=== PATIENT | female | born 1940 | race Caucasian/White ===

== ENCOUNTER 2016-09-03 12:22 | Inpatient (IN) | payer MEDICARE, BC ==
[2016-09-03] MEDS ORDERED: ALBUTEROL NEBULIZED 2.5 MG/3 ML INHALATION STA (12:35)
[2016-09-03] MEDS ORDERED: methylPREDNISolone SOD SUCCI 125 MG/2 ML VIAL IV STA (12:35)
[2016-09-03] MEDS ORDERED: IPRATROPIUM 0.5 MG/2.5 ML NEBU INHALATION STA (12:35)
[2016-09-03] MEDS ORDERED: KETOROLAC 60 MG/2 ML VIAL IVP STA (12:36)
--- NOTE | 2016-09-03 12:36 | ED ---
General Adult HPI - General Chief complaint: Weakness Stated complaint: Weakness Time Seen by Provider: 09/03/16 12:36 Source: EMS, RN notes reviewed Mode of arrival: EMS Limitations: physical limitation - History of Present Illness Initial comments: This is a 76-year-old female who presents to the emergency department with past medical history significant for bypass surgery and cardiac stents she also has a history of COPD. Patient comes in today because she says lately is becoming more more short of breath and she is finding it difficult to even get around at all. Patient states because of that she's also becoming a lot weaker. Patient states she was recently diagnosed with a bladder infection as well. Patient denies any recent fever chills or cough. Patient denies any headache patient denies numbness weakness. Patient denies any palpitations or chest pain. Patient denies abdominal pain patient denies nausea vomiting diarrhea. Patient denies any recent injury or trauma. - Related Data Home Medications Medication Instructions Recorded Confirmed Pantoprazole Sodium [Protonix] 40 mg PO DAILY 11/17/14 09/03/16 Sertraline [Zoloft] 100 mg PO DAILY 11/17/14 09/03/16 Verapamil HCl [Verapamil ER] 240 mg PO HS 11/17/14 09/03/16 traZODone HCL [Desyrel] 50 mg PO HS PRN 11/17/14 09/03/16 Levothyroxine Sodium [Synthroid] 50 mcg PO DAILY 08/12/15 09/03/16 Lovastatin [Mevacor] 40 mg PO HS 06/30/16 09/03/16 Aspirin 325 mg PO DAILY 09/03/16 09/03/16 Budesonide-Formot 160-4.5 Mcg 2 puff INHALATION RT-BID 09/03/16 09/03/16 [Symbicort 160-4.5 Mcg Inhaler] Ferrous Sulfate [Feosol] 325 mg PO DAILY 09/03/16 09/03/16 Ipratropium-Albuterol Nebulize 3 ml INHALATION RT-QID 09/03/16 09/03/16 [Duoneb 0.5 mg-3 mg/3 ml Soln] Allergies Allergy/AdvReac Type Severity Reaction Status Date / Time No Known Allergies Allergy Verified 09/03/16 12:30 Review of Systems ROS Statement: Those systems with pertinent positive or pertinent negative responses have been documented in the HPI. ROS Other: All systems not noted in ROS Statement are negative. Past Medical History Past Medical History: Cancer, COPD, GERD/Reflux, Hyperlipidemia, Hypertension, Myocardial Infarction ([place]), Pneumonia, Thyroid Disorder Additional Past Medical History / Comment(s): 08-12-15 ADMITTED WITH SOB. CLINICAL IMPRESSION: ACUTE EXACERBATION OF COPD,TRACHEOBRONCHITIS. colon cancer 2010, chemo/radiation, [place] 2004- stents, HOME 02 3 LITERS [place] Last Myocardial Infarction Date:: 2004 History of Any Multi-Drug Resistant Organisms: None Reported Past Surgical History: Appendectomy, Bowel Resection, Coronary Bypass/CABG, Heart Catheterization With Stent, Hysterectomy, Orthopedic Surgery Additional Past Surgical History / Comment(s): 18 inches of colon removed, right shoulder surgery Additional Past Anesthesia/Blood Transfusion Reaction / Comment(s): CLAUSTERPHOBIA Date of Last Stent Placement:: 2004 Past Psychological History: Anxiety, Depression Additional Psychological History / Comment(s): zoloft and xanax. PT DEINIES ANY THOUGHTS OF HARMING SELF NO SIUCIDAL THOUGHTS. PT FEELS SOME DEPRESSION D/T MEDICAL RPOBLEMS(END STAGE COPD) STILL FINDS INTEREST IN GRANDCHILDREN, AT TIMES FEELS BAD BECAUSE SHE CAN'T DO WHAT SHE USED TO AND SPOUSE HELPS HER. WHEN ASKED IF FEELS HOPLESS PT STATED YES FOR FUTURE BECAUSE OF HER MEDICAL PROLEMS SHE SHE DOES'NT KNOW HOW MANY MORE YEARS SHE HAS TO SEE GRANDCHILDREN GROW UP. Smoking Status: Former smoker Past Alcohol Use History: None Reported Additional Past Alcohol Use History / Comment(s): QUIT SMOKING 1989 Past Drug Use History: None Reported - Past Family History Mother Family Medical History: Cancer Additional Family Medical History / Comment(s): breast cancer Father Family Medical History: Cancer Additional Family Medical History / Comment(s): lung cancer Sister(s) Family Medical History: Cancer Additional Family Medical History / Comment(s): pancreatic cancer General Exam - General Exam Comments Initial Comments: GENERAL: Patient is well-developed and well-nourished. Patient is nontoxic and well- hydrated and is in mild distress. ENT: Neck is soft and supple. No significant lymphadenopathy is noted. Oropharynx is clear. Moist mucous membranes. Neck has full range of motion without eliciting any pain. EYES: The sclera were anicteric and conjunctiva were pink and moist. Extraocular movements were intact and pupils were equal round and reactive to light. Eyelids were unremarkable. PULMONARY: Patient has diminished breath sounds diffusely and some expiratory wheezing. CARDIOVASCULAR: There is a regular rate and rhythm without any murmurs gallops or rubs. ABDOMEN: Soft and nontender with normal bowel sounds. No palpable organomegaly was noted. There is no palpable pulsatile mass. SKIN: Skin is clear with no lesions or rashes and otherwise unremarkable. NEUROLOGIC: Patient is alert and oriented x3. Cranial nerves II through XII are grossly intact. Motor and sensory are also intact. Normal speech, volume and content. Symmetrical smile. MUSCULOSKELETAL: Normal extremities with adequate strength and full range of motion. No lower extremity swelling or edema. No calf tenderness. LYMPHATICS: No significant lymphadenopathy is noted PSYCHIATRIC: Normal psychiatric evaluation. Normal interpersonal interactions appears functionally intact in deals appropriately with others. No signs of depression. No signs of anxiety. Limitations: physical limitation Course Vital Signs 09/03/16 09/03/16 09/03/16 12:27 13:00 13:15 Temperature 97.9 F Pulse Rate 80 76 78 Respiratory 20 Rate Blood Pressure 152/81 O2 Sat by Pulse 100 Oximetry 09/03/16 09/03/16 09/03/16 13:17 13:46 13:55 Temperature Pulse Rate 75 82 86 Respiratory 20 Rate Blood Pressure 162/67 O2 Sat by Pulse 100 Oximetry 09/03/16 15:29 Temperature Pulse Rate 88 Respiratory 18 Rate Blood Pressure 140/65 O2 Sat by Pulse 98 Oximetry Medical Decision Making - Medical Decision Making EKG shows normal sinus rhythm at a rate of 76 bpm MD interval is on a 56 QRS 78 QT interval 414 QTC is 465. Patient's EKG shows some T-wave inversions in leads V2 and V3. These were seen in previous EKGs. Urine showed a bad urinary tract infection started the patient on Levaquin and continue that on the floor. Chest x-ray showed COPD but no acute findings. Begin the room at the patient received her treatment and she was doing better but not back to her baseline according to her she could have symmetrical wheezing so. I spoke with Dr. Choi and he agreed to admit the patient admitted the patient I wrote admitting orders continue breathing treatments and steroids in the floor. - Lab Data Result diagrams: 09/03/16 13:46 09/03/16 12:50 Lab Results 09/03/16 09/03/16 09/03/16 Range/Units 12:50 12:50 12:50 WBC (3.8-10.6) k/uL RBC (3.80-5.40) m/uL Hgb (11.4-16.0) gm/dL Hct (34.0-46.0) % MCV (80.0-100.0) fL MCH (25.0-35.0) pg MCHC (31.0-37.0) g/dL RDW (11.5-15.5) % Plt Count (150-450) k/uL Neutrophils % % Lymphocytes % % Monocytes % % Eosinophils % % Basophils % % Neutrophils # (1.3-7.7) k/uL Lymphocytes # (1.0-4.8) k/uL Monocytes # (0-1.0) k/uL Eosinophils # (0-0.7) k/uL Basophils # (0-0.2) k/uL Hypochromasia PT (9.0-12.0) sec INR (<1.1) APTT (22.0-30.0) sec Sodium 142 (137-145) mmol/L Potassium 4.7 (3.5-5.1) mmol/L Chloride 102 (98-107) mmol/L Carbon Dioxide 28 (22-30) mmol/L Anion Gap 12 mmol/L BUN 14 (7-17) mg/dL Creatinine 0.79 (0.52-1.04) mg/dL Est GFR (MDRD) Af Amer >60 (>60 ml/min/1.73 sqM) Est GFR (MDRD) Non-Af >60 (>60 ml/min/1.73 sqM) Glucose 97 (74-99) mg/dL Calcium 9.1 (8.4-10.2) mg/dL Magnesium 2.0 (1.6-2.3) mg/dL Total Bilirubin 0.5 (0.2-1.3) mg/dL AST 34 (14-36) U/L ALT 34 (9-52) U/L Alkaline Phosphatase 101 (38-126) U/L Total Creatine Kinase 320 H (30-135) U/L CK-MB (CK-2) 0.6 (0.0-2.4) ng/mL CK-MB (CK-2) Rel Index 0.2 Troponin I <0.012 (0.000-0.034) ng/mL NT-Pro-B Natriuret Pep 288 pg/mL Total Protein 6.9 (6.3-8.2) g/dL Albumin 4.1 (3.5-5.0) g/dL Urine Color Urine Appearance (Clear) Urine pH (5.0-8.0) Ur Specific Clifford (1.001-1.035) Urine Protein (Negative) Urine Glucose (UA) (Negative) Urine Ketones (Negative) Urine Blood (Negative) Urine Nitrate (Negative) Urine Bilirubin (Negative) Urine Urobilinogen (<2.0) mg/dL Ur Leukocyte Esterase (Negative) Urine RBC (0-5) /hpf Urine WBC (0-5) /hpf Urine WBC Clumps (None) /hpf Ur Squamous Epith Cells (0-4) /hpf Urine Mucus (None) /hpf Urine Yeast (Budding) (None) /hpf 09/03/16 09/03/16 09/03/16 Range/Units 13:46 13:49 14:45 WBC 11.2 H (3.8-10.6) k/uL RBC 3.74 L (3.80-5.40) m/uL Hgb 10.7 L (11.4-16.0) gm/dL Hct 35.6 (34.0-46.0) % MCV 95.2 (80.0-100.0) fL MCH 28.5 (25.0-35.0) pg MCHC 29.9 L (31.0-37.0) g/dL RDW 14.2 (11.5-15.5) % Plt Count 275 (150-450) k/uL Neutrophils % 62 % Lymphocytes % 27 % Monocytes % 5 % Eosinophils % 2 % Basophils % 1 % Neutrophils # 6.9 (1.3-7.7) k/uL Lymphocytes # 3.0 (1.0-4.8) k/uL Monocytes # 0.5 (0-1.0) k/uL Eosinophils # 0.3 (0-0.7) k/uL Basophils # 0.1 (0-0.2) k/uL Hypochromasia Marked PT 10.2 (9.0-12.0) sec INR 1.0 (<1.1) APTT 22.1 (22.0-30.0) sec Sodium (137-145) mmol/L Potassium (3.5-5.1) mmol/L Chloride (98-107) mmol/L Carbon Dioxide (22-30) mmol/L Anion Gap mmol/L BUN (7-17) mg/dL Creatinine (0.52-1.04) mg/dL Est GFR (MDRD) Af Amer (>60 ml/min/1.73 sqM) Est GFR (MDRD) Non-Af (>60 ml/min/1.73 sqM) Glucose (74-99) mg/dL Calcium (8.4-10.2) mg/dL Magnesium (1.6-2.3) mg/dL Total Bilirubin (0.2-1.3) mg/dL AST (14-36) U/L ALT (9-52) U/L Alkaline Phosphatase (38-126) U/L Total Creatine Kinase (30-135) U/L CK-MB (CK-2) (0.0-2.4) ng/mL CK-MB (CK-2) Rel Index Troponin I (0.000-0.034) ng/mL NT-Pro-B Natriuret Pep pg/mL Total Protein (6.3-8.2) g/dL Albumin (3.5-5.0) g/dL Urine Color Yellow Urine Appearance Cloudy H (Clear) Urine pH 5.5 (5.0-8.0) Ur Specific Clifford 1.016 (1.001-1.035) Urine Protein Trace H (Negative) Urine Glucose (UA) Negative (Negative) Urine Ketones Trace H (Negative) Urine Blood Small H (Negative) Urine Nitrate Negative (Negative) Urine Bilirubin Negative (Negative) Urine Urobilinogen <2.0 (<2.0) mg/dL Ur Leukocyte Esterase Large H (Negative) Urine RBC 8 H (0-5) /hpf Urine WBC >182 H (0-5) /hpf Urine WBC Clumps Few H (None) /hpf Ur Squamous Epith Cells 1 (0-4) /hpf Urine Mucus Occasional H (None) /hpf Urine Yeast (Budding) Few H (None) /hpf Critical Care Time Critical Care Time: Yes Total Critical Care Time: 35 Disposition Clinical Impression: Urinary tract infection, Acute exacerbation of chronic obstructive pulmonary disease (COPD) Disposition: ADMITTED IP TO THIS HOSP Time of Disposition: 15:41
[2016-09-03 13:13] LABS: ALT 34 U/L (9-52); AST 34 U/L (14-36); Alkaline Phosphatase 101 U/L (38-126); Anion Gap 12 mmol/L; Blood Urea Nitrogen 14 mg/dL (7-17); Calcium 9.1 mg/dL (8.4-10.2); Carbon Dioxide 28 mmol/L (22-30); Chloride 102 mmol/L (98-107); Glucose 97 mg/dL (74-99); Non-African American GFR(MDRD) >60 (>60 ml/min/1.73 sqM); Potassium 4.7 mmol/L (3.5-5.1); Sodium 142 mmol/L (137-145); Total Bilirubin 0.5 mg/dL (0.2-1.3); Total Protein 6.9 g/dL (6.3-8.2)
[2016-09-03 13:45] LABS: Creatine Kinase 320 U/L (30-135)
[2016-09-03 13:57] LABS: Creatine Kinase MB 0.6 ng/mL (0.0-2.4); Troponin I <0.012 ng/mL (0.000-0.034)
[2016-09-03 14:15] LABS: Basophils # (A) 0.1 k/uL (0-0.2); Basophils % (A) 1 %; CH 28.8; CHCM 30.3; Eosinophils # (A) 0.3 k/uL (0-0.7); Eosinophils % (A) 2 %; HCT 35.6 % (34.0-46.0); HDW 2.77; HGB 10.7 gm/dL (11.4-16.0); Hypochromasia Marked; Luc # (Auto) 0.42; Luc % (Auto) 4; Lymphocytes % (A) 27 %; MCH 28.5 pg (25.0-35.0); MCHC 29.9 g/dL (31.0-37.0); MCV 95.2 fL (80.0-100.0); Mean Platelet Volume 7.5; Monocytes # (A) 0.5 k/uL (0-1.0); Monocytes % (A) 5 %; Neutrophils # (A) 6.9 k/uL (1.3-7.7); Neutrophils % (A) 62 %; RBC 3.74 m/uL (3.80-5.40); RDW 14.2 % (11.5-15.5); WBC 11.2 k/uL (3.8-10.6); WBC (Perox) 11.54
[2016-09-03 14:30] LABS: Partial Thromboplastin Time 22.1 sec (22.0-30.0); Prothrombin Time 10.2 sec (9.0-12.0)
[2016-09-03 15:01] LABS: Appearance,Urine Cloudy (Clear); Bilirubin,Urine Negative (Negative); Glucose,Urine (UA) Negative (Negative); Ketones,Urine Trace (Negative); Leukocyte Esterase,Urine Large (Negative); Mucus,Urine Occasional /hpf; Nitrite,Urine Negative (Negative); PH, Urine 5.5 (5.0-8.0); Particle Count 75970; Protein,Urine Trace (Negative); RBC,Urine 8 /hpf (0-5); Specific Gravity,Urine 1.016 (1.001-1.035); Squamous Epithelial Cell,Urine 1 /hpf (0-4); UA Billing (MACRO vs. MICRO) MICRO; Urobilinogen,Urine <2.0 mg/dL (<2.0); WBC,Urine >182 /hpf (0-5)
--- NOTE | 2016-09-03 15:15 | XR ---
EXAMINATION TYPE: XR chest 2V DATE OF EXAM: 09/03/2016 2:37 PM COMPARISON: 06/30/2016 INDICATION: Difficulty breathing TECHNIQUE: Single frontal view of the chest is obtained. FINDINGS: The heart size is normal. The pulmonary vasculature is normal. The lungs are clear. There is a port present on the left with tip in the superior vena cava region. Sternotomy wires are p resent. Osseous structures as visualized appear intact. IMPRESSION: 1. No acute pulmonary process.
[2016-09-03] MEDS ORDERED: LEVOFLOXACIN 750MG-D5W PMX 750 MG in DEXTROSE/WATER 1 150ML.BAG IVPB STA (15:28)
[2016-09-03] MEDS: IPRATROPIUM-ALBUTEROL 3 ML NEB INHALATION PRN (19:26)
[2016-09-03] MEDS: BUDESONIDE 0.5 MG/2 ML NEBU INHALATION SCH (19:26)
[2016-09-03] MEDS: VERAPAMIL SR 240 MG TABLET.ER PO SCH (20:01)
[2016-09-03] MEDS: ATORVASTATIN 10 MG TAB PO SCH (20:01)
[2016-09-03] MEDS: methylPREDNISolone SOD SUCCI 125 MG/2 ML VIAL IV SCH ×2 (20:01→23:26)
[2016-09-03] MEDS: traZODone HCL 50 MG TAB PO PRN (21:45)
[2016-09-04] MEDS: LEVOTHYROXINE 50 MCG TAB PO SCH (06:29)
[2016-09-04] MEDS: methylPREDNISolone SOD SUCCI 125 MG/2 ML VIAL IV SCH ×3 (06:29→18:20)
[2016-09-04 07:06] LABS: Glucose,Whole Blood 160 mg/dL (75-99)
[2016-09-04] MEDS: IPRATROPIUM-ALBUTEROL 3 ML NEB INHALATION PRN (07:43)
[2016-09-04] MEDS: BUDESONIDE 0.5 MG/2 ML NEBU INHALATION SCH ×2 (07:43→21:25)
[2016-09-04] MEDS ORDERED: ACETAMINOPHEN TAB 325 MG TAB PO PRN (07:49)
[2016-09-04] MEDS: PANTOPRAZOLE 40 MG TABLET PO SCH (08:29)
[2016-09-04] MEDS: SERTRALINE 100 MG TAB PO SCH (09:50)
[2016-09-04] MEDS: ASPIRIN 325 MG TAB PO SCH (09:50)
[2016-09-04] MEDS: MORPHINE SULFATE 2 MG/ML SYRINGE IVP PRN ×2 (09:50→21:10)
--- NOTE | 2016-09-04 11:56 | P.HPIM ---
History of Present Illness H&P Date: 09/04/16 Chief Complaint: Shortness of breath and burning with urination This is a 76-year-old female, a patient of Dr. Roberts. She has a known past medical history of recurrent urinary tract infections, COPD, hypertension, hypothyroidism, colon cancer and coronary artery disease with previous cardiac stenting and coronary bypass grafting. Patient presents to the emergency room with complaints of worsening shortness of breath over the last few days. She is having difficulty with ambulating due to her shortness of breath. She also noted to have some generalized weakness and weakness in the legs. She did have a slight fall at home where she felt that her legs, gave out and she slid to the floor. She denies any injury or loss of consciousness. She also has been having burning with urination and was found to have a urinary tract infection on admission. Patient was started on Levaquin for the UTI and IV steroids for her COPD exacerbation. Patient is on 3 L of oxygen at home. And is currently on 3 L satting at 94%. Patient denies any fever, chills or sweats. She denies cough. Denies any nausea or vomiting. Denies any diarrhea. She had a formed stool yesterday. Review of Systems Please refer to HPI otherwise unremarkable Past Medical History Past Medical History: Cancer, COPD, GERD/Reflux, Hyperlipidemia, Hypertension, Myocardial Infarction ([place]), Pneumonia, Thyroid Disorder Additional Past Medical History / Comment(s): COPD,TRACHEOBRONCHITIS.HOME 02 3 LITERS [place] colon cancer 2010, chemo/radiation, [place] 2004-2 stents, UTI'S, chronic abdominal pain Last Myocardial Infarction Date:: 2004 History of Any Multi-Drug Resistant Organisms: None Reported Past Surgical History: Appendectomy, Bowel Resection, Coronary Bypass/CABG, Heart Catheterization With Stent, Hysterectomy, Orthopedic Surgery Additional Past Surgical History / Comment(s): 18 inches of colon removed, right shoulder surgery Additional Past Anesthesia/Blood Transfusion Reaction / Comment(s): CLAUSTERPHOBIA Date of Last Stent Placement:: 2004 Past Psychological History: Anxiety, Depression Additional Psychological History / Comment(s): zoloft and xanax. PT DEINIES ANY THOUGHTS OF HARMING SELF NO SIUCIDAL THOUGHTS. PT FEELS SOME DEPRESSION D/T MEDICAL RPOBLEMS(END STAGE COPD) STILL FINDS INTEREST IN GRANDCHILDREN, AT TIMES FEELS BAD BECAUSE SHE CAN'T DO WHAT SHE USED TO AND SPOUSE HELPS HER. WHEN ASKED IF FEELS HOPLESS PT STATED YES FOR FUTURE BECAUSE OF HER MEDICAL PROLEMS SHE SHE DOES'NT KNOW HOW MANY MORE YEARS SHE HAS TO SEE GRANDCHILDREN GROW UP. Smoking Status: Former smoker Past Alcohol Use History: None Reported Additional Past Alcohol Use History / Comment(s): STARTED SMOKING AT AGE 23, SMOKED 2 PPD,QUIT SMOKING 1989 Past Drug Use History: None Reported - Past Family History Mother Family Medical History: Cancer Additional Family Medical History / Comment(s): breast cancer Father Family Medical History: Cancer Additional Family Medical History / Comment(s): lung cancer Sister(s) Family Medical History: Cancer Additional Family Medical History / Comment(s): pancreatic cancer Medications and Allergies Home Medications Medication Instructions Recorded Confirmed Type Pantoprazole Sodium [Protonix] 40 mg PO DAILY 11/17/14 09/03/16 History Sertraline [Zoloft] 100 mg PO DAILY 11/17/14 09/03/16 History Verapamil HCl [Verapamil ER] 240 mg PO HS 11/17/14 09/03/16 History traZODone HCL [Desyrel] 50 mg PO HS PRN 11/17/14 09/03/16 History Levothyroxine Sodium [Synthroid] 50 mcg PO DAILY 08/12/15 09/03/16 History Lovastatin [Mevacor] 40 mg PO HS 06/30/16 09/03/16 History Aspirin 325 mg PO DAILY 09/03/16 09/03/16 History Budesonide-Formot 160-4.5 Mcg 2 puff INHALATION RT-BID 09/03/16 09/03/16 History [Symbicort 160-4.5 Mcg Inhaler] Ferrous Sulfate [Feosol] 325 mg PO DAILY 09/03/16 09/03/16 History Ipratropium-Albuterol Nebulize 3 ml INHALATION RT-QID 09/03/16 09/03/16 History [Duoneb 0.5 mg-3 mg/3 ml Soln] Allergies Allergy/AdvReac Type Severity Reaction Status Date / Time No Known Allergies Allergy Verified 09/03/16 12:30 Physical Exam Vitals: Vital Signs Temp Pulse Pulse Resp BP BP Pulse Ox 09/04/16 08:00 84 09/04/16 07:44 84 09/04/16 07:00 97.7 F 80 18 132/70 94 L 09/03/16 23:00 98.2 F 83 20 155/76 97 09/03/16 19:40 82 09/03/16 19:28 82 98 09/03/16 17:10 96.3 F L 86 20 144/70 98 09/03/16 16:15 97.5 F L 87 18 137/66 98 Intake and Output 09/03/16 09/04/16 09/04/16 22:59 06:59 14:59 Intake Total 250 450 Balance 250 450 Intake: Oral 250 450 Other: Voiding Method Bedside Commode Bedpan # Voids 2 5 1 Head normocephalic Neck supple Lungs tight bilaterally, few faint wheezes noted bilaterally no crackles Heart regular rate and rhythm S1-S2, no rub or gallop Abdomen is soft nondistended positive bowel sounds no hepatosplenomegaly. Patient does have diffuse tenderness Extremities no edema Neuro alert and orientated to 3 Results CBC & Chem 7: 09/03/16 13:46 09/03/16 12:50 Labs: Abnormal Lab Results - Last 24 Hours (Table) 09/04/16 Range/Units 07:04 POC Glucose (mg/dL) 160 H (75-99) mg/dL Thrombosis Risk Factor Assmnt - Choose All That Apply Any of the Below Risk Factors Present?: Yes Each Factor Represents 1 point: Abnormal pulmonary function (COPD), Obesity ( BMI >25), Serious lung disease incl. pneumonia (< 1month) Other Risk Factors: Yes Each Risk Factor Represents 2 Points: Malignancy Each Risk Factor Represents 3 Points: Age 75 years or older Other congenital or acquired thrombophilia - If yes, enter type in comment: No Thrombosis Risk Factor Assessment Total Risk Factor Score: 8 Thrombosis Risk Factor Assessment Level: High Risk Assessment and Plan Plan: 1. Acute COPD exacerbation: Patient started on IV Solu-Medrol. Also add DuoNeb updrafts 4 times a day and as needed. 2. UTI: Urine culture pending. Continue with the Levaquin 3. History of COPD and chronic respiratory failure home O2 dependent 4. History of coronary artery disease with previous cardiac stents and CABG 5. History of myocardial infarction 6. History of colon cancer about 3 years ago status post chemotherapy and bowel resection 7. Essential hypertension: Blood pressures are stable continue with verapamil 8. Hypothyroidism continue Synthroid 9. Generalized weakness and medical debility consult physical therapy GI prophylaxis Protonix and DVT prophylaxis subcu heparin Time with Patient: Greater than 30 (Greater than 50% of the total time spent in counseling and coordination of care.I performed an examination of the patient and discussed their management with the physician Exchange Clerk. I have reviewed the Physician Exchange Clerk's notes and agree with the documented findings and plan of care)
[2016-09-04 11:57] LABS: Glucose,Whole Blood 190 mg/dL (75-99)
[2016-09-04] MEDS: IPRATROPIUM-ALBUTEROL 3 ML NEB INHALATION SCH ×3 (12:03→21:25)
[2016-09-04 12:40] VITALS: BMI 29.2
[2016-09-04] MEDS: INSULIN LISPRO (humaLOG) 300 UNIT/3 ML VIAL SQ SCH ×3 (13:03→20:50)
[2016-09-04] MEDS: FERROUS SULFATE 325 MG TAB PO SCH (13:03)
[2016-09-04] MEDS ORDERED: LEVOFLOXACIN 750MG-D5W PMX 750 MG in DEXTROSE/WATER 1 150ML.BAG IVPB SCH (16:00)
[2016-09-04 16:48] LABS: Glucose,Whole Blood 175 mg/dL (75-99)
[2016-09-04] MEDS: ALPRAZolam 0.25 MG TAB PO PRN (20:41)
[2016-09-04] MEDS: ATORVASTATIN 10 MG TAB PO SCH (20:42)
[2016-09-04] MEDS: HEPARIN SODIUM,PORCINE 5,000 UNIT/ML 1 ML VIAL SQ SCH (20:42)
[2016-09-04] MEDS: VERAPAMIL SR 240 MG TABLET.ER PO SCH (20:42)
[2016-09-04 20:48] LABS: Glucose,Whole Blood 193 mg/dL (75-99)
[2016-09-04] MEDS: traZODone HCL 50 MG TAB PO PRN (21:10)
[2016-09-05] MEDS: methylPREDNISolone SOD SUCCI 125 MG/2 ML VIAL IV SCH ×3 (00:48→12:30)
[2016-09-05] MEDS: LEVOTHYROXINE 50 MCG TAB PO SCH (06:51)
[2016-09-05] MEDS: IPRATROPIUM-ALBUTEROL 3 ML NEB INHALATION SCH ×4 (07:15→19:54)
[2016-09-05] MEDS: BUDESONIDE 0.5 MG/2 ML NEBU INHALATION SCH ×2 (07:15→19:54)
[2016-09-05 07:24] LABS: Glucose,Whole Blood 180 mg/dL (75-99)
[2016-09-05 08:51] LABS: Basophils % (A) 0 %; CH 28.3; CHCM 30.9; Eosinophils % (A) 0 %; HCT 35.5 % (34.0-46.0); Hypochromasia Moderate; Luc # (Auto) 0.09; Luc % (Auto) 1; Lymphocytes # (A) 0.9 k/uL (1.0-4.8); Lymphocytes % (A) 6 %; MCH 28.4 pg (25.0-35.0); MCHC 30.9 g/dL (31.0-37.0); MCV 91.8 fL (80.0-100.0); Mean Platelet Volume 7.4; Monocytes # (A) 0.4 k/uL (0-1.0); Monocytes % (A) 3 %; Neutrophils # (A) 13.1 k/uL (1.3-7.7); Neutrophils % (A) 90 %; RBC 3.87 m/uL (3.80-5.40); RDW 14.3 % (11.5-15.5); WBC 14.5 k/uL (3.8-10.6); WBC (Perox) 14.41
[2016-09-05 08:55] LABS: ALT 35 U/L (9-52); AST 104 U/L (14-36); Alkaline Phosphatase 89 U/L (38-126); Anion Gap 14 mmol/L; Blood Urea Nitrogen 23 mg/dL (7-17); Calcium 9.1 mg/dL (8.4-10.2); Carbon Dioxide 24 mmol/L (22-30); Chloride 104 mmol/L (98-107); Glucose 194 mg/dL (74-99); Non-African American GFR(MDRD) >60 (>60 ml/min/1.73 sqM); Potassium 4.6 mmol/L (3.5-5.1); Sodium 142 mmol/L (137-145); Total Bilirubin 0.4 mg/dL (0.2-1.3); Total Protein 6.6 g/dL (6.3-8.2)
[2016-09-05] MEDS: ASPIRIN 325 MG TAB PO SCH (09:24)
[2016-09-05] MEDS: SERTRALINE 100 MG TAB PO SCH (09:24)
[2016-09-05] MEDS: PANTOPRAZOLE 40 MG TABLET PO SCH (09:24)
[2016-09-05] MEDS: HEPARIN SODIUM,PORCINE 5,000 UNIT/ML 1 ML VIAL SQ SCH ×2 (09:24→21:47)
[2016-09-05] MEDS: INSULIN LISPRO (humaLOG) 300 UNIT/3 ML VIAL SQ SCH ×4 (09:24→21:49)
[2016-09-05 11:55] LABS: Glucose,Whole Blood 164 mg/dL (75-99)
[2016-09-05] MEDS: FERROUS SULFATE 325 MG TAB PO SCH (12:30)
--- NOTE | 2016-09-05 14:05 | P.PN ---
Subjective Patient is doing better today. She is complaining of constipation. Objective - Vital Signs Vital signs: Vital Signs Temp 97.4 F L 09/05/16 07:00 Pulse 88 09/05/16 11:23 Resp 16 09/05/16 07:00 BP 149/90 09/05/16 07:00 Pulse Ox 92 L 09/05/16 07:00 Intake & Output 09/04/16 09/05/16 09/05/16 18:59 06:59 18:59 Weight 68.039 kg Other: # Voids 1 3 1 - Exam General: The patient is awake and alert, in no distress Eye: there is normal conjunctiva bilaterally. Neck: The neck is supple, there is no JVD. Cardiovascular: Normal S1-S2, no S3-S4, no murmurs. Respiratory: Lungs clear to auscultation bilaterally Gastrointestinal: Abdomen is soft, nontender Musculoskeletal: There is no pedal edema. Neurological:. Speech is normal. Skin: Skin is warm and dry - Labs CBC & Chem 7: 09/05/16 08:20 09/05/16 08:20 Labs: Abnormal Lab Results - Last 24 Hours (Table) 09/04/16 09/04/16 09/05/16 Range/Units 16:45 20:47 06:58 WBC (3.8-10.6) k/uL Hgb (11.4-16.0) gm/dL MCHC (31.0-37.0) g/dL Neutrophils # (1.3-7.7) k/uL Lymphocytes # (1.0-4.8) k/uL BUN (7-17) mg/dL Glucose (74-99) mg/dL POC Glucose (mg/dL) 175 H 193 H 180 H (75-99) mg/dL AST (14-36) U/L 09/05/16 09/05/16 09/05/16 Range/Units 08:20 08:20 11:53 WBC 14.5 H (3.8-10.6) k/uL Hgb 11.0 L (11.4-16.0) gm/dL MCHC 30.9 L (31.0-37.0) g/dL Neutrophils # 13.1 H (1.3-7.7) k/uL Lymphocytes # 0.9 L (1.0-4.8) k/uL BUN 23 H (7-17) mg/dL Glucose 194 H (74-99) mg/dL POC Glucose (mg/dL) 164 H (75-99) mg/dL AST 104 H (14-36) U/L Assessment and Plan Plan: 1. Acute COPD exacerbation: Patient started on IV Solu-Medrol. Also add DuoNeb updrafts 4 times a day and as needed. 2. UTI: Urine culture pending. Continue with the Levaquin 3. History of COPD and chronic respiratory failure home O2 dependent 4. History of coronary artery disease with previous cardiac stents and CABG 5. History of myocardial infarction 6. History of colon cancer about 3 years ago status post chemotherapy and bowel resection 7. Essential hypertension: Blood pressures are stable continue with verapamil 8. Hypothyroidism continue Synthroid 9. Generalized weakness and medical debility consult physical therapy Continue current regimen otherwise. Encouraged ambulation. Awaiting cultures to finalize. Anticipated discharge to ECF on Wednesday.
[2016-09-05] MEDS ORDERED: LEVOFLOXACIN 750MG-D5W PMX 750 MG in DEXTROSE/WATER 1 150ML.BAG IVPB SCH (16:00)
[2016-09-05] MEDS: POLYETHYLENE GLYCOL 3350 17 GM POWD.PACK PO SCH (16:20)
[2016-09-05 17:16] LABS: Glucose,Whole Blood 169 mg/dL (75-99)
[2016-09-05 20:57] LABS: Glucose,Whole Blood 136 mg/dL (75-99)
[2016-09-05] MEDS: ATORVASTATIN 10 MG TAB PO SCH (21:47)
[2016-09-05] MEDS: VERAPAMIL SR 240 MG TABLET.ER PO SCH (21:47)
[2016-09-05] MEDS: methylPREDNISolone SOD SUCCI 40 MG/ML 1 ML VIAL IV SCH (21:48)
[2016-09-05] MEDS: ALPRAZolam 0.25 MG TAB PO PRN (21:55)
[2016-09-05] MEDS: traZODone HCL 50 MG TAB PO PRN (22:03)
[2016-09-06] MEDS: MORPHINE SULFATE 2 MG/ML SYRINGE IVP PRN ×2 (00:54→22:17)
[2016-09-06] MEDS: IPRATROPIUM-ALBUTEROL 3 ML NEB INHALATION SCH ×4 (07:15→19:42)
[2016-09-06] MEDS: BUDESONIDE 0.5 MG/2 ML NEBU INHALATION SCH ×2 (07:15→19:42)
[2016-09-06 07:25] LABS: Glucose,Whole Blood 141 mg/dL (75-99)
[2016-09-06] MEDS: SERTRALINE 100 MG TAB PO SCH (08:13)
[2016-09-06] MEDS: methylPREDNISolone SOD SUCCI 40 MG/ML 1 ML VIAL IV SCH (08:13)
[2016-09-06] MEDS: HEPARIN SODIUM,PORCINE 5,000 UNIT/ML 1 ML VIAL SQ SCH ×2 (08:13→21:03)
[2016-09-06] MEDS: LEVOTHYROXINE 50 MCG TAB PO SCH (08:13)
[2016-09-06] MEDS: INSULIN LISPRO (humaLOG) 300 UNIT/3 ML VIAL SQ SCH ×4 (08:13→22:21)
[2016-09-06] MEDS: PANTOPRAZOLE 40 MG TABLET PO SCH (08:13)
[2016-09-06] MEDS: ASPIRIN 325 MG TAB PO SCH (08:13)
[2016-09-06] MEDS: POLYETHYLENE GLYCOL 3350 17 GM POWD.PACK PO SCH (08:13)
[2016-09-06 08:17] LABS: Basophils % (A) 0 %; CH 28.5; CHCM 30.7; Eosinophils # (A) 0.1 k/uL (0-0.7); Eosinophils % (A) 1 %; HCT 37.5 % (34.0-46.0); HDW 2.71; HGB 11.3 gm/dL (11.4-16.0); Hypochromasia Moderate; Luc # (Auto) 0.14; Luc % (Auto) 1; Lymphocytes % (A) 6 %; MCH 28.1 pg (25.0-35.0); MCHC 30.2 g/dL (31.0-37.0); MCV 93.1 fL (80.0-100.0); Mean Platelet Volume 7.9; Monocytes # (A) 0.6 k/uL (0-1.0); Monocytes % (A) 4 %; Neutrophils # (A) 15.2 k/uL (1.3-7.7); Neutrophils % (A) 89 %; RBC 4.02 m/uL (3.80-5.40); RDW 14.6 % (11.5-15.5); WBC 17.1 k/uL (3.8-10.6); WBC (Perox) 17.78
[2016-09-06] MEDS: ALPRAZolam 0.25 MG TAB PO PRN ×2 (08:20→22:17)
[2016-09-06 08:27] LABS: ALT 40 U/L (9-52); AST 108 U/L (14-36); Alkaline Phosphatase 88 U/L (38-126); Anion Gap 14 mmol/L; Blood Urea Nitrogen 25 mg/dL (7-17); Calcium 9.3 mg/dL (8.4-10.2); Carbon Dioxide 26 mmol/L (22-30); Chloride 102 mmol/L (98-107); Glucose 136 mg/dL (74-99); Non-African American GFR(MDRD) >60 (>60 ml/min/1.73 sqM); Potassium 4.5 mmol/L (3.5-5.1); Sodium 142 mmol/L (137-145); Total Bilirubin 0.4 mg/dL (0.2-1.3); Total Protein 6.9 g/dL (6.3-8.2)
[2016-09-06] MEDS ORDERED: INFLUENZA VACCINE (3YR+) 60 MCG/0.5 ML SYRINGE IM ONE (08:27)
[2016-09-06 11:55] LABS: Glucose,Whole Blood 113 mg/dL (75-99)
[2016-09-06] MEDS: FERROUS SULFATE 325 MG TAB PO SCH (12:13)
--- NOTE | 2016-09-06 14:55 | P.PN ---
Subjective Patient is doing better today. No events overnight. Objective - Vital Signs Vital signs: Vital Signs Temp 97.4 F L 09/06/16 07:00 Pulse 88 09/06/16 11:04 Resp 16 09/06/16 08:00 BP 153/74 09/06/16 07:00 Pulse Ox 98 09/06/16 07:00 Intake & Output 09/05/16 09/06/16 09/06/16 18:59 06:59 18:59 Other: # Voids 2 5 1 # Bowel Movements 1 - Exam General: The patient is awake and alert, in no distress Eye: there is normal conjunctiva bilaterally. Neck: The neck is supple, there is no JVD. Cardiovascular: Normal S1-S2, no S3-S4, no murmurs. Respiratory: Lungs clear to auscultation bilaterally Gastrointestinal: Abdomen is soft, nontender Musculoskeletal: There is no pedal edema. Neurological:. Speech is normal. Skin: Skin is warm and dry - Labs CBC & Chem 7: 09/06/16 07:46 09/06/16 07:46 Labs: Abnormal Lab Results - Last 24 Hours (Table) 09/05/16 09/05/16 09/06/16 Range/Units 17:12 20:56 07:09 WBC (3.8-10.6) k/uL Hgb (11.4-16.0) gm/dL MCHC (31.0-37.0) g/dL Neutrophils # (1.3-7.7) k/uL BUN (7-17) mg/dL Glucose (74-99) mg/dL POC Glucose (mg/dL) 169 H 136 H 141 H (75-99) mg/dL AST (14-36) U/L 09/06/16 09/06/16 09/06/16 Range/Units 07:46 07:46 11:54 WBC 17.1 H (3.8-10.6) k/uL Hgb 11.3 L (11.4-16.0) gm/dL MCHC 30.2 L (31.0-37.0) g/dL Neutrophils # 15.2 H (1.3-7.7) k/uL BUN 25 H (7-17) mg/dL Glucose 136 H (74-99) mg/dL POC Glucose (mg/dL) 113 H (75-99) mg/dL AST 108 H (14-36) U/L Assessment and Plan Plan: 1. Acute COPD exacerbation: Patient started on IV Solu-Medrol. Was switched to oral prednisone. Continue DuoNeb updrafts 4 times a day and as needed. 2. UTI: Urine culture was not obtained unfortunately. Patient is improving clinically. Continue with the Levaquin to finish 7 days course 3. History of COPD and chronic respiratory failure home O2 dependent 4. History of coronary artery disease with previous cardiac stents and CABG 5. History of myocardial infarction 6. History of colon cancer about 3 years ago status post chemotherapy and bowel resection 7. Essential hypertension: Blood pressures are stable continue with verapamil 8. Hypothyroidism continue Synthroid 9. Generalized weakness and medical debility consult physical therapy Continue current regimen otherwise. Encouraged ambulation. Anticipated discharge to ECF on Wednesday.
[2016-09-06] MEDS ORDERED: LEVOFLOXACIN 750 MG TAB PO SCH (16:00)
[2016-09-06 17:23] LABS: Glucose,Whole Blood 169 mg/dL (75-99)
[2016-09-06] MEDS: ATORVASTATIN 10 MG TAB PO SCH (21:03)
[2016-09-06] MEDS: VERAPAMIL SR 240 MG TABLET.ER PO SCH (21:03)
[2016-09-06 22:27] LABS: Glucose,Whole Blood 154 mg/dL (75-99)
[2016-09-06] MEDS: traZODone HCL 50 MG TAB PO PRN (22:58)
[2016-09-07] MEDS: LEVOTHYROXINE 50 MCG TAB PO SCH (06:55)
[2016-09-07 07:51] LABS: Glucose,Whole Blood 94 mg/dL (75-99)
[2016-09-07] MEDS: IPRATROPIUM-ALBUTEROL 3 ML NEB INHALATION SCH ×2 (08:11→11:37)
[2016-09-07] MEDS: BUDESONIDE 0.5 MG/2 ML NEBU INHALATION SCH (08:11)
[2016-09-07] MEDS: SERTRALINE 100 MG TAB PO SCH (08:23)
[2016-09-07] MEDS: ALPRAZolam 0.25 MG TAB PO PRN (08:23)
[2016-09-07] MEDS: HEPARIN SODIUM,PORCINE 5,000 UNIT/ML 1 ML VIAL SQ SCH (08:23)
[2016-09-07] MEDS: POLYETHYLENE GLYCOL 3350 17 GM POWD.PACK PO SCH ×2 (08:23→08:24)
[2016-09-07] MEDS: ASPIRIN 325 MG TAB PO SCH (08:23)
[2016-09-07] MEDS: INSULIN LISPRO (humaLOG) 300 UNIT/3 ML VIAL SQ SCH ×2 (08:23→12:09)
[2016-09-07] MEDS: PANTOPRAZOLE 40 MG TABLET PO SCH (08:23)
[2016-09-07] MEDS ORDERED: predniSONE 20 MG TAB PO SCH (09:00)
[2016-09-07 09:11] VITALS: BP 159/73; RESP 16; TEMP 97.1
[2016-09-07 09:21] LABS: Basophils # (A) 0.1 k/uL (0-0.2); Basophils % (A) 0 %; CH 28.7; CHCM 30.3; Eosinophils % (A) 0 %; HCT 38.4 % (34.0-46.0); HDW 2.63; HGB 11.3 gm/dL (11.4-16.0); Hypochromasia Moderate; Luc # (Auto) 0.22; Luc % (Auto) 2; Lymphocytes # (A) 2.3 k/uL (1.0-4.8); Lymphocytes % (A) 16 %; MCHC 29.5 g/dL (31.0-37.0); Mean Platelet Volume 7.9; Monocytes % (A) 7 %; Neutrophils # (A) 10.7 k/uL (1.3-7.7); Neutrophils % (A) 75 %; RBC 4.04 m/uL (3.80-5.40); RDW 14.6 % (11.5-15.5); WBC 14.4 k/uL (3.8-10.6); WBC (Perox) 15.15
[2016-09-07 09:37] LABS: ALT 56 U/L (9-52); AST 86 U/L (14-36); Alkaline Phosphatase 83 U/L (38-126); Anion Gap 12 mmol/L; Blood Urea Nitrogen 26 mg/dL (7-17); Calcium 9.2 mg/dL (8.4-10.2); Carbon Dioxide 28 mmol/L (22-30); Chloride 103 mmol/L (98-107); Glucose 125 mg/dL (74-99); Non-African American GFR(MDRD) >60 (>60 ml/min/1.73 sqM); Potassium 4.5 mmol/L (3.5-5.1); Sodium 143 mmol/L (137-145); Total Bilirubin 0.4 mg/dL (0.2-1.3); Total Protein 6.3 g/dL (6.3-8.2)
[2016-09-07 11:40] VITALS: PULSE 88
[2016-09-07 11:46] LABS: Glucose,Whole Blood 142 mg/dL (75-99)
[2016-09-07] MEDS: FERROUS SULFATE 325 MG TAB PO SCH (12:09)
--- NOTE | 2016-09-07 13:08 | P.DS ---
Providers Date of admission: 09/03/16 15:42 Attending physician: Ezra Choi Primary care physician: Bisi Roberts Plan - Discharge Summary New Discharge Prescriptions: ALPRAZolam [Xanax] 0.25 mg PO TID PRN #60 tab PRN Reason: Anxiety Discharge Medication List Pantoprazole Sodium [Protonix] 40 mg PO DAILY 11/17/14 [History] Sertraline [Zoloft] 100 mg PO DAILY 11/17/14 [History] Verapamil HCl [Verapamil ER] 240 mg PO HS 11/17/14 [History] traZODone HCL [Desyrel] 50 mg PO HS PRN 11/17/14 [History] Levothyroxine Sodium [Synthroid] 50 mcg PO DAILY 08/12/15 [History] Lovastatin [Mevacor] 40 mg PO HS 06/30/16 [History] Aspirin 325 mg PO DAILY 09/03/16 [History] Budesonide-Formot 160-4.5 Mcg [Symbicort 160-4.5 Mcg Inhaler] 2 puff INHALATION RT-BID 09/03/16 [History] Ferrous Sulfate [Iron (65 MG Elemental)] 325 mg PO DAILY 09/03/16 [History] ALPRAZolam [Xanax] 0.25 mg PO TID PRN #60 tab 09/07/16 [Rx] Ipratropium-Albuterol Nebulize [Duoneb 0.5 mg-3 mg/3 ml Soln] 3 ml INHALATION TID #0 09/07/16 [Rx] Polyethylene Glycol 3350 [Miralax] 17 gm PO DAILY powd.pack 09/07/16 [Rx] predniSONE 40 mg PO DAILY 5 Days 09/07/16 [Rx] Follow up Appointment(s)/Referral(s): Bisi Roberts MD [Primary Care Provider] - 1-2 days Ezra Choi MD [STAFF PHYSICIAN] - 1 Week Discharge Disposition: TRANSFER TO SNF/ECF
--- NOTE | 2016-09-07 15:00 | CDI ---
In responding to this query, please exercise your independent professional judgment. The [employer] Coding Staff and Clinical Documentation Specialists appreciate your assistance in clarifying documentation, maintaining compliance with coding guidelines, accurately documenting patients condition and capturing severity of illness. The fact that a question is asked does not imply that any particular answer is desired or expected. Communication forms are a method of clarifying documentation and are not made part of the Legal Health Record. Thank you in advance for your clarification. Last Revision, September 2015 Marlen Cordero [address] [place] [address] Documentation Clarification Form Date: 09/07/2016 2:45:00 PM From: Yolanda Rowe Admit Date: 09/03/2016 3:42:00 PM Patient Name: Sheron Spann Visit Number: [id number] Discharge Date: Dr. Ezra Choi The patient presented with the following respiratory symptoms: More short of breath with diminished breath sounds diffusely and some expiratory wheezing. H&P: Chronic respiratory failure is on home O2 dependent, 3/L NC History/Risk Factors: COPD, Hypertension, Colon CA, DC (2004) Tobacco use: Former Smoker Home oxygen: 3/L NC Clinical Indicators: Shortness of breath Vital signs/Pulse oximetry: On admission: 152/81 80 20 97.9 100 % 3/L NC Treatment: Breathing tx: Albuterol/Ipratropium Duoneb's Atrovent Nebulized Solu-Medrol IV (changed to PO Prednisone) Monitor O2 Sat's and titrate In your professional opinion, can you please clarify if these findings signify one of the following conditions? Acuity: o Acute o Chronic o Acute on Chronic Respiratory Status: o Respiratory failure with hypercapnia o Respiratory failure with hypoxia o Other Diagnosis, please specify o Unable to determine Please document in your progress notes and discharge summary in order to capture severity of illness and risk of mortality. FYI: Press F11 to launch patient chart. Place X here if this finding has no clinical significance, is not applicable or if you are not able to provide any additional documentation. MTDD
== END 2016-09-07 14:35 | DRG 191 ==
LOC: EC 12:22 → 4MS4W 15:42
PROVIDERS: ADMIT Internal Medicine; ATTEND Internal Medicine
DX: J44.1 Chronic obstructive pulmonary disease with (acute) exacerbation (principal); N39.0 Urinary tract infection, site not specified; J96.10 Chronic respiratory failure, unspecified whether with hypoxia or hypercapnia; I10 Essential (primary) hypertension; E03.9 Hypothyroidism, unspecified; E78.5 Hyperlipidemia, unspecified; F32.9 Major depressive disorder, single episode, unspecified; F41.9 Anxiety disorder, unspecified; I25.10 Atherosclerotic heart disease of native coronary artery without angina pectoris; I25.2 Old myocardial infarction; K21.9 Gastro-esophageal reflux disease without esophagitis; K59.00 Constipation, unspecified; G89.29 Other chronic pain; R10.9 Unspecified abdominal pain; F40.240 Claustrophobia; R53.81 Other malaise; Z79.82 Long term (current) use of aspirin; Z79.899 Other long term (current) drug therapy; Z85.038 Personal history of other malignant neoplasm of large intestine; Z87.440 Personal history of urinary (tract) infections; Z87.891 Personal history of nicotine dependence; Z95.1 Presence of aortocoronary bypass graft; Z95.5 Presence of coronary angioplasty implant and graft; Z99.81 Dependence on supplemental oxygen
CPT/HCPCS: 36415; 71020; 80053; 81001; 82550; 82553; 83735; 83880; 84484; 85025; 85610; 85730; 87040; 87502; 93005; 94640; 94644; 96365; 96375; 99291

== ENCOUNTER 2017-07-27 10:29 | Inpatient (IN) | payer BC, MEDICARE ==
[2017-07-27] MEDS ORDERED: IPRATROPIUM 0.5 MG/2.5 ML NEBU INHALATION STA (10:37)
[2017-07-27] MEDS ORDERED: ALBUTEROL NEBULIZED 2.5 MG/3 ML INHALATION STA (10:37)
[2017-07-27] MEDS ORDERED: methylPREDNISolone SOD SUCCI 125 MG/2 ML VIAL IV STA (10:37)
--- NOTE | 2017-07-27 10:40 | ED ---
General Adult HPI - General Stated complaint: Diff Breathing Time Seen by Provider: 07/27/17 10:32 Source: patient, EMS, RN notes reviewed, old records reviewed - History of Present Illness Initial comments: 77-year-old female presented for evaluation of dyspnea. Patient has a history of COPD and is currently on 3 L of home oxygen. She has had progressive worsening cough and dyspnea over the past several days. She also reports fever of 101. States her sputum is yellow. She also complains of right posterior chest pain. No central chest pain. She has history of coronary artery bypass graft. Patient denies lower extremity edema or calf tenderness. She has been taking albuterol at home with minimal relief. - Related Data Home Medications Medication Instructions Recorded Confirmed Pantoprazole Sodium [Protonix] 40 mg PO DAILY 11/17/14 07/27/17 Sertraline [Zoloft] 100 mg PO DAILY 11/17/14 07/27/17 Verapamil HCl [Verapamil ER] 240 mg PO HS 11/17/14 07/27/17 traZODone HCL [Desyrel] 50 mg PO HS PRN 11/17/14 07/27/17 Levothyroxine Sodium [Synthroid] 50 mcg PO DAILY 08/12/15 07/27/17 Lovastatin [Mevacor] 40 mg PO HS 06/30/16 07/27/17 Aspirin 325 mg PO HS 09/03/16 07/27/17 Budesonide-Formot 160-4.5 Mcg 2 puff INHALATION RT-BID 09/03/16 07/27/17 [Symbicort 160-4.5 Mcg Inhaler] Ferrous Sulfate [Iron (65 MG 325 mg PO DAILY 09/03/16 07/27/17 Elemental)] ALPRAZolam [Xanax] 0.25 mg PO BID 07/27/17 07/27/17 Previous Rx's Medication Instructions Recorded Ipratropium-Albuterol Nebulize 3 ml INHALATION TID #0 09/07/16 [Duoneb 0.5 mg-3 mg/3 ml Soln] Polyethylene Glycol 3350 [Miralax] 17 gm PO DAILY powd.pack 09/07/16 Allergies Allergy/AdvReac Type Severity Reaction Status Date / Time No Known Allergies Allergy Verified 07/27/17 10:56 Review of Systems ROS Statement: Those systems with pertinent positive or pertinent negative responses have been documented in the HPI. ROS Other: All systems not noted in ROS Statement are negative. Past Medical History Past Medical History: Cancer, COPD, GERD/Reflux, Hyperlipidemia, Hypertension, Myocardial Infarction (HI), Pneumonia, Thyroid Disorder Additional Past Medical History / Comment(s): COPD,TRACHEOBRONCHITIS.HOME 02 3 LITERS [place] colon cancer 2010, chemo/radiation, HI 2005-2 stents, UTI'S, chronic abdominal pain Last Myocardial Infarction Date:: 2004 History of Any Multi-Drug Resistant Organisms: None Reported Past Surgical History: Appendectomy, Bowel Resection, Coronary Bypass/CABG, Heart Catheterization With Stent, Hysterectomy, Orthopedic Surgery Additional Past Surgical History / Comment(s): 18 inches of colon removed, right shoulder surgery Additional Past Anesthesia/Blood Transfusion Reaction / Comment(s): CLAUSTERPHOBIA Date of Last Stent Placement:: 2004 Past Psychological History: Anxiety, Depression Additional Psychological History / Comment(s): zoloft and xanax. PT DEINIES ANY THOUGHTS OF HARMING SELF NO SIUCIDAL THOUGHTS. PT FEELS SOME DEPRESSION D/T MEDICAL RPOBLEMS(END STAGE COPD) STILL FINDS INTEREST IN GRANDCHILDREN, AT TIMES FEELS BAD BECAUSE SHE CAN'T DO WHAT SHE USED TO AND SPOUSE HELPS HER. WHEN ASKED IF FEELS HOPLESS PT STATED YES FOR FUTURE BECAUSE OF HER MEDICAL PROLEMS SHE SHE DOES'NT KNOW HOW MANY MORE YEARS SHE HAS TO SEE GRANDCHILDREN GROW UP. Smoking Status: Former smoker Past Alcohol Use History: None Reported Additional Past Alcohol Use History / Comment(s): STARTED SMOKING AT AGE 23, SMOKED 2 PPD,QUIT SMOKING 1989 Past Drug Use History: None Reported - Past Family History Mother Family Medical History: Cancer Additional Family Medical History / Comment(s): breast cancer Father Family Medical History: Cancer Additional Family Medical History / Comment(s): lung cancer Sister(s) Family Medical History: Cancer Additional Family Medical History / Comment(s): pancreatic cancer General Exam General appearance: alert, in no apparent distress Head exam: Present: atraumatic, normocephalic Eye exam: Present: normal appearance, PERRL ENT exam: Present: normal exam Neck exam: Present: normal inspection. Absent: tenderness, meningismus Respiratory exam: Present: respiratory distress, wheezes, decreased breath sounds, prolonged expiratory. Absent: rales Cardiovascular Exam: Present: regular rate, normal rhythm GI/Abdominal exam: Present: soft. Absent: distended, tenderness Extremities exam: Present: normal inspection, normal capillary refill. Absent: pedal edema Back exam: Present: normal inspection, full ROM. Absent: tenderness Neurological exam: Present: alert, oriented X3, CN II-XII intact. Absent: motor sensory deficit Psychiatric exam: Present: normal affect, normal mood Skin exam: Present: warm, dry, intact. Absent: cyanosis, diaphoretic Course Vital Signs 07/27/17 07/27/17 07/27/17 10:34 11:12 11:30 Temperature 97.8 F Pulse Rate 97 94 96 Respiratory 20 Rate Blood Pressure 151/70 O2 Sat by Pulse 98 Oximetry EKG Findings - EKG Comments: EKG Findings:: EKG shows normal sinus rhythm, ventricular rate 96, IL of 150, castration 74, QTC 396, there is T-wave abnormality in the precordial leads, unchanged from previous EKG. Medical Decision Making - Medical Decision Making 69-year-old female presenting with cough and dyspnea and fever. On examination patient's tachypnea, wheezing in all lung [place]. X-rays obtained, there is a concern for mass first masslike consolidation in the right upper lobe. Laboratory studies reveal white blood cell count which is elevated 13.8, hemoglobin 10.5, troponin and BNP are negative. CT will be obtained for evaluation of right upper lobe mass. This study is pending. - Lab Data Result diagrams: 07/27/17 10:50 07/27/17 10:50 Lab Results 07/27/17 07/27/17 07/27/17 Range/Units 10:50 10:50 10:50 WBC 13.8 H (3.8-10.6) k/uL RBC 3.81 (3.80-5.40) m/uL Hgb 10.5 L (11.4-16.0) gm/dL Hct 34.0 (34.0-46.0) % MCV 89.2 (80.0-100.0) fL MCH 27.6 (25.0-35.0) pg MCHC 30.9 L (31.0-37.0) g/dL RDW 13.9 (11.5-15.5) % Plt Count 276 (150-450) k/uL Neutrophils % 75 % Lymphocytes % 16 % Monocytes % 5 % Eosinophils % 2 % Basophils % 0 % Neutrophils # 10.4 H (1.3-7.7) k/uL Lymphocytes # 2.2 (1.0-4.8) k/uL Monocytes # 0.7 (0-1.0) k/uL Eosinophils # 0.2 (0-0.7) k/uL Basophils # 0.0 (0-0.2) k/uL Hypochromasia Slight PT (9.0-12.0) sec INR (<1.2) APTT (22.0-30.0) sec Sodium 141 (137-145) mmol/L Potassium 4.5 (3.5-5.1) mmol/L Chloride 101 (98-107) mmol/L Carbon Dioxide 29 (22-30) mmol/L Anion Gap 11 mmol/L BUN 11 (7-17) mg/dL Creatinine 0.75 (0.52-1.04) mg/dL Est GFR (MDRD) Af Amer >60 (>60 ml/min/1.73 sqM) Est GFR (MDRD) Non-Af >60 (>60 ml/min/1.73 sqM) Glucose 121 H (74-99) mg/dL Calcium 9.3 (8.4-10.2) mg/dL Magnesium 1.9 (1.6-2.3) mg/dL Total Bilirubin 0.8 (0.2-1.3) mg/dL AST 22 (14-36) U/L ALT 30 (9-52) U/L Alkaline Phosphatase 111 (38-126) U/L Total Creatine Kinase 29 L (30-135) U/L CK-MB (CK-2) <0.2 (0.0-2.4) ng/mL CK-MB (CK-2) Rel Index Troponin I <0.012 (0.000-0.034) ng/mL NT-Pro-B Natriuret Pep pg/mL Total Protein 6.7 (6.3-8.2) g/dL Albumin 4.1 (3.5-5.0) g/dL 07/27/17 07/27/17 Range/Units 10:50 10:50 WBC (3.8-10.6) k/uL RBC (3.80-5.40) m/uL Hgb (11.4-16.0) gm/dL Hct (34.0-46.0) % MCV (80.0-100.0) fL MCH (25.0-35.0) pg MCHC (31.0-37.0) g/dL RDW (11.5-15.5) % Plt Count (150-450) k/uL Neutrophils % % Lymphocytes % % Monocytes % % Eosinophils % % Basophils % % Neutrophils # (1.3-7.7) k/uL Lymphocytes # (1.0-4.8) k/uL Monocytes # (0-1.0) k/uL Eosinophils # (0-0.7) k/uL Basophils # (0-0.2) k/uL Hypochromasia PT 9.8 (9.0-12.0) sec INR 1.0 (<1.2) APTT 21.2 L (22.0-30.0) sec Sodium (137-145) mmol/L Potassium (3.5-5.1) mmol/L Chloride (98-107) mmol/L Carbon Dioxide (22-30) mmol/L Anion Gap mmol/L BUN (7-17) mg/dL Creatinine (0.52-1.04) mg/dL Est GFR (MDRD) Af Amer (>60 ml/min/1.73 sqM) Est GFR (MDRD) Non-Af (>60 ml/min/1.73 sqM) Glucose (74-99) mg/dL Calcium (8.4-10.2) mg/dL Magnesium (1.6-2.3) mg/dL Total Bilirubin (0.2-1.3) mg/dL AST (14-36) U/L ALT (9-52) U/L Alkaline Phosphatase (38-126) U/L Total Creatine Kinase (30-135) U/L CK-MB (CK-2) (0.0-2.4) ng/mL CK-MB (CK-2) Rel Index Troponin I (0.000-0.034) ng/mL NT-Pro-B Natriuret Pep 283 pg/mL Total Protein (6.3-8.2) g/dL Albumin (3.5-5.0) g/dL Disposition Clinical Impression: Acute exacerbation of chronic obstructive airways disease Disposition: ADMITTED IP TO THIS HOSP Condition: Stable Referrals: Bisi Roberts MD [Primary Care Provider] - 1-2 days Decision to Admit Reason: Admit from EC Decision Date: 07/27/17 Decision Time: 13:01
[2017-07-27 11:11] LABS: Basophils % (A) 0 %; Eosinophils # (A) 0.2 k/uL (0-0.7); Eosinophils % (A) 2 %; HGB 10.5 gm/dL (11.4-16.0); Hypochromasia Slight; Lymphocytes # (A) 2.2 k/uL (1.0-4.8); Lymphocytes % (A) 16 %; MCH 27.6 pg (25.0-35.0); MCHC 30.9 g/dL (31.0-37.0); MCV 89.2 fL (80.0-100.0); Mean Platelet Volume 6.8; Monocytes # (A) 0.7 k/uL (0-1.0); Monocytes % (A) 5 %; Neutrophils # (A) 10.4 k/uL (1.3-7.7); Neutrophils % (A) 75 %; Platelet Count 276 k/uL (150-450); RBC 3.81 m/uL (3.80-5.40); RDW 13.9 % (11.5-15.5); WBC 13.8 k/uL (3.8-10.6)
[2017-07-27 11:21] LABS: ALT 30 U/L (9-52); AST 22 U/L (14-36); Albumin 4.1 g/dL (3.5-5.0); Alkaline Phosphatase 111 U/L (38-126); Anion Gap 11 mmol/L; Blood Urea Nitrogen 11 mg/dL (7-17); Calcium 9.3 mg/dL (8.4-10.2); Carbon Dioxide 29 mmol/L (22-30); Chloride 101 mmol/L (98-107); Glucose 121 mg/dL (74-99); Magnesium 1.9 mg/dL (1.6-2.3); Potassium 4.5 mmol/L (3.5-5.1); Sodium 141 mmol/L (137-145); Total Bilirubin 0.8 mg/dL (0.2-1.3); Total Protein 6.7 g/dL (6.3-8.2)
[2017-07-27 11:40] LABS: Creatine Kinase 29 U/L (30-135)
[2017-07-27 11:52] LABS: Creatine Kinase MB <0.2 ng/mL (0.0-2.4); Troponin I <0.012 ng/mL (0.000-0.034)
[2017-07-27 11:56] LABS: Prothrombin Time 9.8 sec (9.0-12.0)
--- NOTE | 2017-07-27 12:03 | XR ---
EXAMINATION TYPE: XR chest 2V DATE OF EXAM: 07/27/2017 COMPARISON: 09/03/2016 TECHNIQUE: PA and lateral views submitted. HISTORY: Chest pain FINDINGS: Postsurgical changes. Atherosclerotic change aorta. Chronic arthropathy of the shoulders. Hypertrophi c and degenerative change of the spine. Blunting the costophrenic angles bilaterally. Chronic deformi ty of the right humerus. IMPRESSION: 1. Correlate for COPD. There is suspicion of a mass or masslike consolidation in the right upper lobe for which CT scan of the chest is recommended.
[2017-07-27 12:06] LABS: Partial Thromboplastin Time 21.2 sec (22.0-30.0)
[2017-07-27] MEDS ORDERED: cefTRIAXone IN SWFI 1,000 MG/10 ML SYRINGE IVP STA (12:14)
[2017-07-27] MEDS ORDERED: AZITHROMYCIN 500 MG in SODIUM CHLORIDE 0.9% 250 ML IVPB STA (12:16)
[2017-07-27] MEDS ORDERED: IPRATROPIUM-ALBUTEROL 3 ML NEB INHALATION PRN (12:57)
[2017-07-27] MEDS ORDERED: RX INFO: IV CONTRAST WAS GIVEN 1 EACH MISC MISCELLANE PRN (12:59)
[2017-07-27] MEDS ORDERED: MORPHINE SULFATE 5 MG/ML SYRINGE IVP STA ×2 (13:19→15:35)
--- NOTE | 2017-07-27 14:01 | CT ---
CT CHEST FOR PULMONARY EMBOLISM. EXAMINATION TYPE: CT angio chest DATE OF EXAM: 07/27/2017 INDICATION: Pain CT DLP: 280.1 mGycm, Automated exposure control for dose reduction was used. CONTRAST: Patient injected with 100 mL of Omnipaque 350. COMPARISON: 05/20/2012 TECHNIQUE: CT of the chest is performed on a spiral scan at 2 mm thick sections. Study is performed with intravenous contrast timed for evaluation for pulmonary embolism. This will limit additional po rtions of the evaluation. 3-D MIP images reconstructed by the technologist are reviewed on the compu ter in the coronal and sagittal planes. FINDINGS: No persistent filling defects are evident to suggest an acute pulmonary embolism. There is some subtl e hypodensity within the central portions of the right lower lobe arterial vessels. Example image ser ies 4 image 87. These appear nonobstructive, possibly old thrombus versus artifact. No mediastinal or hilar adenopathy enlarged by CT criteria is evident. The ascending aorta diameter at the level of the main pulmonary artery is 2.9 cm. The main pulmonary artery diameter at the bifur cation is 2.8 cm. Coronary artery calcification is noted. Advanced emphysematous changes are present bilaterally. Some compressive atelectasis is likely along the major fissure in the right upper lobe. Small amount of fluid is likely within the major fissure o n the left. There is nodular density within the lingula measuring 0.9 x 0.5 cm in size. Series 5 imag e 91. This was not present in 2012. Limited CT section through the upper abdomen are unremarkable. IMPRESSIONS: 1. No acute pulmonary emboli evident. There is a small amount of central hypodensity within right l ower lobe pulmonary artery branches which could be some old thrombus from previous pulmonary emboli w hich are nonobstructive at this time. 2. 0.9 x 0.5 cm nodular density within the lingula. Follow-up is recommended.
[2017-07-27] MEDS: IPRATROPIUM-ALBUTEROL 3 ML NEB INHALATION SCH ×2 (16:01→19:30)
[2017-07-27 17:04] LABS: Appearance,Urine Clear (Clear); Bacteria,Urine Few /hpf; Bilirubin,Urine Negative (Negative); Blood,Urine Negative (Negative); Color,Urine Yellow; Glucose,Urine (UA) Negative (Negative); Ketones,Urine Trace (Negative); Leukocyte Esterase,Urine Negative (Negative); Nitrite,Urine Positive (Negative); Protein,Urine Trace (Negative); RBC,Urine 6 /hpf (0-5); Squamous Epithelial Cell,Urine 1 /hpf (0-4); Urobilinogen,Urine <2.0 mg/dL (<2.0); WBC,Urine 4 /hpf (0-5)
[2017-07-27 17:42] LABS: Specific Gravity,Urine 1.049 (1.001-1.035)
[2017-07-27] MEDS: SYMBICORT 160-4.5 MCG INHALER INHALATION SCH (19:30)
[2017-07-27] MEDS: ALPRAZolam 0.25 MG TAB PO SCH (21:44)
[2017-07-27] MEDS: ASPIRIN 325 MG TAB PO SCH (21:44)
[2017-07-27] MEDS: VERAPAMIL SR 240 MG TABLET.ER PO SCH (21:44)
[2017-07-27] MEDS: ATORVASTATIN 10 MG TAB PO SCH (21:45)
[2017-07-27] MEDS: MORPHINE SULFATE 5 MG/ML SYRINGE IVP PRN (21:45)
[2017-07-27] MEDS: traZODone HCL 50 MG TAB PO PRN (21:45)
[2017-07-27 23:17] VITALS: RESP 16
[2017-07-28] MEDS: MORPHINE SULFATE 5 MG/ML SYRINGE IVP PRN (06:07)
[2017-07-28] MEDS: LEVOTHYROXINE 50 MCG TAB PO SCH (06:08)
[2017-07-28] MEDS: FERROUS SULFATE 325 MG TAB PO SCH (08:13)
[2017-07-28] MEDS: POLYETHYLENE GLYCOL 3350 17 GM POWD.PACK PO SCH (08:13)
[2017-07-28] MEDS: SERTRALINE 100 MG TAB PO SCH (08:13)
[2017-07-28] MEDS: PANTOPRAZOLE 40 MG TABLET PO SCH (08:13)
[2017-07-28] MEDS: ALPRAZolam 0.25 MG TAB PO SCH ×2 (08:17→20:09)
[2017-07-28 08:33] LABS: Anion Gap 13 mmol/L; Blood Urea Nitrogen 14 mg/dL (7-17); Calcium 9.1 mg/dL (8.4-10.2); Carbon Dioxide 26 mmol/L (22-30); Chloride 103 mmol/L (98-107); Glucose 149 mg/dL (74-99); Potassium 4.3 mmol/L (3.5-5.1); Sodium 142 mmol/L (137-145)
[2017-07-28 08:56] LABS: Basophils % (A) 0 %; Eosinophils % (A) 0 %; HCT 31.5 % (34.0-46.0); HGB 9.7 gm/dL (11.4-16.0); Hypochromasia Moderate; Lymphocytes % (A) 8 %; MCH 27.5 pg (25.0-35.0); MCHC 30.6 g/dL (31.0-37.0); MCV 89.8 fL (80.0-100.0); Mean Platelet Volume 7.2; Monocytes # (A) 0.6 k/uL (0-1.0); Monocytes % (A) 5 %; Neutrophils # (A) 10.2 k/uL (1.3-7.7); Neutrophils % (A) 85 %; Platelet Count 277 k/uL (150-450); RBC 3.51 m/uL (3.80-5.40); RDW 13.6 % (11.5-15.5)
[2017-07-28] MEDS ORDERED: predniSONE 20 MG TAB PO SCH (09:00)
[2017-07-28] MEDS: IPRATROPIUM-ALBUTEROL 3 ML NEB INHALATION SCH ×4 (09:34→19:37)
[2017-07-28] MEDS: SYMBICORT 160-4.5 MCG INHALER INHALATION SCH ×2 (09:34→19:37)
--- NOTE | 2017-07-28 12:18 | P.HPIM ---
History of Present Illness H&P Date: 07/28/17 Chief Complaint: Shortness of breath This is a 69-year-old female with past medical history noted below for severe COPD on home O2 presented to the hospital with worsening shortness of breath and cough. Patient said for the past week she has been having progressive shortness of breath. She said that she was unable to walk around without getting short of breath. She reported cough that was productive initially with yellowish sputum. Currently her cough is nonproductive. She said the cough is persistent. She was also complaining of pain in the right lower back started suddenly after she coughed really hard. She denies any trauma or fall. He was evaluated in emergency room and found to have acute COPD exacerbation with diffuse wheezing. D-dimer was elevated. CT angiogram showed no evidence of PE. Patient is currently admitted to the hospital for further evaluation. Review of Systems Review of system: 14 points review of systems were obtained and were negative except to what were mentioned in the HPI. Past Medical History Past Medical History: Coronary Artery Disease (CAD), Cancer, COPD, GERD/Reflux, Hyperlipidemia, Hypertension, Myocardial Infarction (ID), Osteoarthritis (OA), Pneumonia, Thyroid Disorder Additional Past Medical History / Comment(s): Tracheobronchitis, home O2 at 3L/ NC ATC, colon cancer with surgery/chemo, hypothyroid, UTIs, arthritis multiple joints, osteoporosis, diverticular dx, chronic abdominal pain. Last Myocardial Infarction Date:: 2004 History of Any Multi-Drug Resistant Organisms: None Reported Past Surgical History: Appendectomy, Bladder Surgery, Bowel Resection, Coronary Bypass/CABG, Heart Catheterization With Stent, Hysterectomy, Orthopedic Surgery , Tonsillectomy Additional Past Surgical History / Comment(s): bowel resection-18 inches removed , colonoscopy/polypectomy with 1 polyp positive for cancer that led to her bowel surgery, CABG in 2004, bladder suspension, R shoulder rotator cuff surgery , mediport R upper chest, bilateral cataract removal with lens implants. Additional Past Anesthesia/Blood Transfusion Reaction / Comment(s): CLAUSTERPHOBIA Date of Last Stent Placement:: 2004 Smoking Status: Former smoker - Past Family History Mother Family Medical History: Cancer Additional Family Medical History / Comment(s): breast cancer Father Family Medical History: Cancer Additional Family Medical History / Comment(s): lung cancer Sister(s) Family Medical History: Cancer Additional Family Medical History / Comment(s): pancreatic cancer Medications and Allergies Home Medications Medication Instructions Recorded Confirmed Type Pantoprazole Sodium [Protonix] 40 mg PO DAILY 11/17/14 07/27/17 History Sertraline [Zoloft] 100 mg PO DAILY 11/17/14 07/27/17 History Verapamil HCl [Verapamil ER] 240 mg PO HS 11/17/14 07/27/17 History traZODone HCL [Desyrel] 50 mg PO HS PRN 11/17/14 07/27/17 History Levothyroxine Sodium [Synthroid] 50 mcg PO DAILY 08/12/15 07/27/17 History Lovastatin [Mevacor] 40 mg PO HS 06/30/16 07/27/17 History Aspirin 325 mg PO HS 09/03/16 07/27/17 History Budesonide-Formot 160-4.5 Mcg 2 puff INHALATION RT-BID 09/03/16 07/27/17 History [Symbicort 160-4.5 Mcg Inhaler] Ferrous Sulfate [Iron (65 MG 325 mg PO DAILY 09/03/16 07/27/17 History Elemental)] Ipratropium-Albuterol Nebulize 3 ml INHALATION TID #0 09/07/16 07/27/17 Rx [Duoneb 0.5 mg-3 mg/3 ml Soln] Polyethylene Glycol 3350 [Miralax] 17 gm PO DAILY powd.pack 09/07/16 07/27/17 Rx ALPRAZolam [Xanax] 0.25 mg PO BID 07/27/17 07/27/17 History Allergies Allergy/AdvReac Type Severity Reaction Status Date / Time No Known Allergies Allergy Verified 07/27/17 10:56 Physical Exam Vitals: Vital Signs Temp Pulse Pulse Resp BP BP Pulse Ox 07/28/17 09:52 80 07/28/17 09:35 76 07/28/17 08:00 77 16 07/28/17 07:00 96.9 F L 77 16 112/59 97 07/27/17 23:00 97.2 F L 89 16 117/61 97 07/27/17 19:45 95 07/27/17 19:32 94 07/27/17 16:12 96 07/27/17 16:03 95 07/27/17 15:00 97.7 F 86 18 119/64 98 07/27/17 14:03 98.7 F 85 18 130/60 98 07/27/17 13:08 98.5 F 90 18 139/64 98 Intake and Output 07/27/17 07/28/17 07/28/17 22:59 06:59 14:59 Intake Total 300 Output Total 250 Balance -250 300 Intake: Oral 300 Output: Urine 250 Other: Voiding Method Bedside Commode Bedside Commode Toilet # Voids 1 2 General: The patient is awake and alert, in no distress Eye: there is normal conjunctiva bilaterally. Neck: The neck is supple, there is no JVD. Cardiovascular: Normal S1-S2, no S3-S4, no murmurs. Respiratory: Lungs with diffuse wheezing all over the chest Gastrointestinal: Abdomen is soft, nontender Musculoskeletal: There is no pedal edema. Neurological:. Speech is normal. Skin: Skin is warm and dry Results CBC & Chem 7: 07/28/17 08:00 07/28/17 08:00 Labs: Abnormal Lab Results - Last 24 Hours (Table) 07/27/17 07/28/17 07/28/17 Range/Units 16:40 08:00 08:00 WBC 12.0 H (3.8-10.6) k/uL RBC 3.51 L (3.80-5.40) m/uL Hgb 9.7 L (11.4-16.0) gm/dL Hct 31.5 L (34.0-46.0) % MCHC 30.6 L (31.0-37.0) g/dL Neutrophils # 10.2 H (1.3-7.7) k/uL Glucose 149 H (74-99) mg/dL Ur Specific [place] 1.049 H (1.001-1.035) Urine Protein Trace H (Negative) Urine Ketones Trace H (Negative) Urine Nitrite Positive H (Negative) Urine RBC 6 H (0-5) /hpf Urine Bacteria Few H (None) /hpf Microbiology - Last 24 Hours (Table) 07/27/17 16:40 Urine Culture - Preliminary Urine,Clean Catch Thrombosis Risk Factor Assmnt - Choose All That Apply Any of the Below Risk Factors Present?: Yes Each Factor Represents 1 point: Abnormal pulmonary function (COPD), Serious lung disease incl. pneumonia (< 1month) Other Risk Factors: Yes Each Risk Factor Represents 2 Points: Malignancy Each Risk Factor Represents 3 Points: Age 75 years or older Other congenital or acquired thrombophilia - If yes, enter type in comment: No Thrombosis Risk Factor Assessment Total Risk Factor Score: 7 Thrombosis Risk Factor Assessment Level: High Risk Assessment and Plan Assessment: 1. Acute COPD exacerbation: I would continue IV steroids 40 mg IV Solu-Medrol every 6 hours. Continue bronchodilators. I would consult pulmonology 2. Acute bacterial bronchitis with questionable pneumonia on computed tomography scan of the chest, would continue IV ceftriaxone and azithromycin. Cough is currently nonproductive. Blood culture negative to date. 3. Nodular density in the lingula: May be secondary to underlying pneumonia. Awaiting pulmonology evaluation. We need to repeat imaging within the next 2-3 months. 4. Acute on chronic hypoxic respiratory failure 5. Coronary artery disease with previous stent placement and a history of CABG 6. History of colon cancer status post partial colectomy approximately 3 years ago 7. Essential hypertension: Blood pressure well controlled
[2017-07-28] MEDS: cefTRIAXone IN SWFI 1,000 MG/10 ML SYRINGE IVP SCH (12:58)
[2017-07-28] MEDS: AZITHROMYCIN 500 MG TAB PO SCH (12:58)
[2017-07-28] MEDS: MORPHINE SULFATE 2 MG/ML SYRINGE IVP PRN ×2 (13:13→17:18)
--- NOTE | 2017-07-28 14:08 | P.CNPUL ---
History of Present Illness Consult date: 07/28/17 Requesting physician: Ezra Choi Reason for consult: dyspnea, abnormal CXR/CT Chief complaint: Shortness of breath, cough, congestion. Right-sided chest pain History of present illness: This is a very pleasant 77-year-old female patient who follows with Dr. casey as her primary care physician. She has a history of coronary artery disease with previous coronary artery bypass grafting, colon cancer with previous bowel resection, hyperlipidemia, hypertension, hypothyroidism, gastroesophageal reflux disease. 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 Ambriz in our office for the same. Her FEV1 value is 20% of predicted. She is on Symbicort and nebulized albuterol in the outpatient setting. She did smoke for approximately 20 years but quit 20 years ago. She presented here to the emergency room yesterday with complaints of right-sided back and chest discomfort. She states she had been coughing yellow sputum. She's had fevers at home up to 100.7. Increasing shortness of breath with minimal exertion. She had a recent fall but denies any injuries. An EKG revealed sinus rhythm with some ST and T-wave abnormality in the anterolateral leads. Troponin is negative. ProBNP 283. CT angiogram ruled out pulmonary embolism. He was a small amount of central hypodensity within the right lower lobe pulmonary branch. Possible old thrombus. There is evidence of advanced emphysema changes bilaterally. There is some compressive atelectasis along the major fissure of the right upper lobe. There is also a nodular density within the lingula measuring 0.9 x 0.5 cm in size. Her urinalysis also reveals positive nitrites few bacteria. Urine culture is pending. Blood culture reveals no growth after 24 hours. Currently on ceftriaxone and azithromycin. White count 12.0. Hemoglobin 9.7. Review of Systems 14 point review of system was conducted. All negative other than as mentioned in the HPI. Past Medical History Past Medical History: Coronary Artery Disease (CAD), Cancer, COPD, GERD/Reflux, Hyperlipidemia, Hypertension, Myocardial Infarction (TX), Osteoarthritis (OA), Pneumonia, Thyroid Disorder Additional Past Medical History / Comment(s): Tracheobronchitis, home O2 at 3L/ [place] ATC, colon cancer with surgery/chemo, hypothyroid, UTIs, arthritis multiple joints, osteoporosis, diverticular dx, chronic abdominal pain. Last Myocardial Infarction Date:: 2004 History of Any Multi-Drug Resistant Organisms: None Reported Past Surgical History: Appendectomy, Bladder Surgery, Bowel Resection, Coronary Bypass/CABG, Heart Catheterization With Stent, Hysterectomy, Orthopedic Surgery , Tonsillectomy Additional Past Surgical History / Comment(s): bowel resection-18 inches removed , colonoscopy/polypectomy with 1 polyp positive for cancer that led to her bowel surgery, CABG in 2004, bladder suspension, R shoulder rotator cuff surgery , mediport R upper chest, bilateral cataract removal with lens implants. Additional Past Anesthesia/Blood Transfusion Reaction / Comment(s): CLAUSTERPHOBIA Date of Last Stent Placement:: 2004 Smoking Status: Former smoker - Past Family History Mother Family Medical History: Cancer Additional Family Medical History / Comment(s): breast cancer Father Family Medical History: Cancer Additional Family Medical History / Comment(s): lung cancer Sister(s) Family Medical History: Cancer Additional Family Medical History / Comment(s): pancreatic cancer Medications and Allergies Home Medications Medication Instructions Recorded Confirmed Type Pantoprazole Sodium [Protonix] 40 mg PO DAILY 11/17/14 07/27/17 History Sertraline [Zoloft] 100 mg PO DAILY 11/17/14 07/27/17 History Verapamil HCl [Verapamil ER] 240 mg PO HS 11/17/14 07/27/17 History traZODone HCL [Desyrel] 50 mg PO HS PRN 11/17/14 07/27/17 History Levothyroxine Sodium [Synthroid] 50 mcg PO DAILY 08/12/15 07/27/17 History Lovastatin [Mevacor] 40 mg PO HS 06/30/16 07/27/17 History Aspirin 325 mg PO HS 09/03/16 07/27/17 History Budesonide-Formot 160-4.5 Mcg 2 puff INHALATION RT-BID 09/03/16 07/27/17 History [Symbicort 160-4.5 Mcg Inhaler] Ferrous Sulfate [Iron (65 MG 325 mg PO DAILY 09/03/16 07/27/17 History Elemental)] Ipratropium-Albuterol Nebulize 3 ml INHALATION TID #0 09/07/16 07/27/17 Rx [Duoneb 0.5 mg-3 mg/3 ml Soln] Polyethylene Glycol 3350 [Miralax] 17 gm PO DAILY powd.pack 09/07/16 07/27/17 Rx ALPRAZolam [Xanax] 0.25 mg PO BID 07/27/17 07/27/17 History Allergies Allergy/AdvReac Type Severity Reaction Status Date / Time No Known Allergies Allergy Verified 07/27/17 10:56 Physical Exam Vitals: Vital Signs Temp Pulse Pulse Resp BP BP Pulse Ox 07/28/17 09:52 80 07/28/17 09:35 76 07/28/17 08:00 77 16 07/28/17 07:00 96.9 F L 77 16 112/59 97 07/27/17 23:00 97.2 F L 89 16 117/61 97 07/27/17 19:45 95 07/27/17 19:32 94 07/27/17 16:12 96 07/27/17 16:03 95 07/27/17 15:00 97.7 F 86 18 119/64 98 07/27/17 14:03 98.7 F 85 18 130/60 98 07/27/17 13:08 98.5 F 90 18 139/64 98 Intake and Output 07/27/17 07/28/17 07/28/17 22:59 06:59 14:59 Intake Total 300 Output Total 250 Balance -250 300 Intake: Oral 300 Output: Urine 250 Other: Voiding Method Bedside Commode Bedside Commode Toilet # Voids 1 2 GENERAL EXAM: Obese. Debilitated. Alert, fairly comfortable in no apparent distress. HEAD: Normocephalic. EYES: Normal reaction of pupils, equal size. NOSE: Clear with pink turbinates. THROAT: No erythema or exudates. NECK: No masses, no JVD. CHEST: No chest wall deformity. Some chest wall tenderness on the right posterior aspect LUNGS: Equal air entry with bilateral end expiratory wheeze, scattered rhonchi. Diminished. CVS: S1 and S2 normal with no audible murmur, regular rhythm. ABDOMEN: No hepatosplenomegaly, normal bowel sounds, no guarding or rigidity. SPINE: No scoliosis or deformity SKIN: No rashes CENTRAL NERVOUS SYSTEM: No focal deficits, tone is normal in all 4 extremities. EXTREMITIES: There is no peripheral edema. No clubbing, no cyanosis. Peripheral pulses are intact. Results - Laboratory Findings CBC and BMP: 07/28/17 08:00 07/28/17 08:00 PT/INR, D-dimer PT 9.8 sec (9.0-12.0) 07/27/17 10:50 INR 1.0 (<1.2) 07/27/17 10:50 Abnormal lab findings: Abnormal Labs 07/27/17 07/27/17 07/27/17 10:50 10:50 10:50 WBC 13.8 H RBC Hgb 10.5 L Hct MCHC 30.9 L Neutrophils # 10.4 H APTT Glucose 121 H Total Creatine Kinase 29 L Ur Specific Clyo Urine Protein Urine Ketones Urine Nitrite Urine RBC Urine Bacteria 07/27/17 07/27/17 07/28/17 10:50 16:40 08:00 WBC 12.0 H RBC 3.51 L Hgb 9.7 L Hct 31.5 L MCHC 30.6 L Neutrophils # 10.2 H APTT 21.2 L Glucose Total Creatine Kinase Ur Specific [place] 1.049 H Urine Protein Trace H Urine Ketones Trace H Urine Nitrite Positive H Urine RBC 6 H Urine Bacteria Few H 07/28/17 08:00 WBC RBC Hgb Hct MCHC Neutrophils # APTT Glucose 149 H Total Creatine Kinase Ur Specific [place]o Urine Protein Urine Ketones Urine Nitrite Urine RBC Urine Bacteria - Diagnostic Findings Chest x-ray: image reviewed CT scan - chest: image reviewed Assessment and Plan Assessment: Impression: #1 Acute exacerbation of severe oxygen dependent chronic obstructive pulmonary disease, complicated by purulent tracheobronchitis. FEV1 value less than 20%. #2 Acute on chronic hypoxic respiratory failure secondary to above. #3 Nodular density within the lingula measuring 0.9 x 0.5 cm. This is quite small and of unclear significance. The patient's pulmonary status is too severe to recommend any further workup or intervention. #4 Hyperlipidemia. #5 Hypertension. #6 Hypothyroidism. #7 History of colon cancer status post resection and chemotherapy. #8 Coronary artery disease with previous coronary artery bypass grafting, previous stent. #9 History of anxiety/depression #10 Urinary tract infection, suspect gram-negative bacilli. #11 Poor overall functional performance based on the above-mentioned multiple comorbidities. Plan: The patient was seen and evaluated by Dr. Ambriz. Her chest x-ray CAT scan and labs were all reviewed. We will go ahead and treat her for an acute exacerbation chronic obstructive pulmonary disease, complicated by purulent tracheobronchitis. No clear evidence of pneumonia at this point. On ceftriaxone and azithromycin, IV Solu-Medrol, bronchodilators. She is on heparin subcutaneous for DVT prophylaxis. Protonix for GI prophylaxis. Dr. Ambriz did have a discussion with the patient and her regarding the pulmonary nodule. There are no plans for further workup or intervention. She is a DO NOT RESUSCITATE/DO NOT INTUBATE CODE STATUS per her request. She has end-stage COPD. We will continue to follow and make further recommendations based on her clinical status. I, the cosigning physician, have performed a history and physical examination on the patient. Lung sounds few scattered rhonchi, end expiratory wheeze. Diminished.. Maintaining good O2 saturations in the 90s on 3 L/m per nasal cannula. I have discussed the assessment and plan of care with my nurse practitioner, Marianela Rondon. I attest the above documented note as dictated by her. Time with Patient: Greater than 30
[2017-07-28] MEDS: ASPIRIN 325 MG TAB PO SCH ×2 (20:09→20:52)
[2017-07-28] MEDS: ATORVASTATIN 10 MG TAB PO SCH (20:09)
[2017-07-28] MEDS: CYCLOBENZAPRINE 5 MG TAB PO PRN (20:10)
[2017-07-28] MEDS: VERAPAMIL SR 240 MG TABLET.ER PO SCH (20:10)
[2017-07-28] MEDS: HEPARIN SODIUM,PORCINE 5,000 UNIT/ML 1 ML VIAL SQ SCH (20:18)
[2017-07-28] MEDS: traZODone HCL 50 MG TAB PO PRN (20:52)
[2017-07-28 23:18] VITALS: TEMP 97.1
[2017-07-29] MEDS: MORPHINE SULFATE 2 MG/ML SYRINGE IVP PRN (05:30)
[2017-07-29] MEDS: LEVOTHYROXINE 50 MCG TAB PO SCH (05:47)
[2017-07-29] MEDS: ALPRAZolam 0.25 MG TAB PO SCH (07:36)
[2017-07-29] MEDS: SERTRALINE 100 MG TAB PO SCH (07:36)
[2017-07-29] MEDS: FERROUS SULFATE 325 MG TAB PO SCH ×2 (07:37→07:40)
[2017-07-29] MEDS: HEPARIN SODIUM,PORCINE 5,000 UNIT/ML 1 ML VIAL SQ SCH ×2 (07:37→07:40)
[2017-07-29] MEDS: PANTOPRAZOLE 40 MG TABLET PO SCH (07:37)
[2017-07-29] MEDS: POLYETHYLENE GLYCOL 3350 17 GM POWD.PACK PO SCH ×2 (07:37→07:40)
[2017-07-29 07:41] VITALS: BP 139/73
[2017-07-29] MEDS: SYMBICORT 160-4.5 MCG INHALER INHALATION SCH (08:12)
[2017-07-29] MEDS: IPRATROPIUM-ALBUTEROL 3 ML NEB INHALATION SCH ×2 (08:12→11:33)
[2017-07-29] MEDS: CYCLOBENZAPRINE 5 MG TAB PO PRN (08:23)
[2017-07-29 09:23] LABS: Basophils # (A) 0.1 k/uL (0-0.2); Basophils % (A) 0 %; Eosinophils % (A) 0 %; HCT 31.4 % (34.0-46.0); HGB 9.5 gm/dL (11.4-16.0); Hypochromasia Marked; Lymphocytes # (A) 1.7 k/uL (1.0-4.8); Lymphocytes % (A) 15 %; MCH 27.2 pg (25.0-35.0); MCHC 30.2 g/dL (31.0-37.0); Mean Platelet Volume 7.4; Monocytes # (A) 0.7 k/uL (0-1.0); Monocytes % (A) 6 %; Neutrophils # (A) 9.2 k/uL (1.3-7.7); Neutrophils % (A) 78 %; Platelet Count 309 k/uL (150-450); RBC 3.49 m/uL (3.80-5.40); RDW 15.2 % (11.5-15.5); WBC 11.9 k/uL (3.8-10.6)
[2017-07-29 09:51] LABS: Anion Gap 12 mmol/L; Blood Urea Nitrogen 23 mg/dL (7-17); Calcium 8.9 mg/dL (8.4-10.2); Carbon Dioxide 26 mmol/L (22-30); Chloride 105 mmol/L (98-107); Glucose 105 mg/dL (74-99); Potassium 4.5 mmol/L (3.5-5.1); Sodium 143 mmol/L (137-145)
[2017-07-29] MEDS: cefTRIAXone IN SWFI 1,000 MG/10 ML SYRINGE IVP SCH (11:21)
[2017-07-29] MEDS: AZITHROMYCIN 500 MG TAB PO SCH (11:21)
[2017-07-29 11:48] VITALS: PULSE 92
--- NOTE | 2017-07-29 12:40 | P.DS ---
Providers Date of admission: 07/27/17 12:57 Expected date of discharge: 07/29/17 Attending physician: Ezra Choi Consults: 07/28/17 12:12 Consult Physician Routine Consulting Provider: Ian Ambriz Consult Reason/Comments: COPD Do you want consulting provider notified?: Yes Primary care physician: Bisi Roberts [facility] Course: 1. Acute COPD exacerbation: Patient improved significantly with IV Solu-Medrol and bronchodilators. She was seen and evaluated by pulmonology. She'll be discharged home on oral prednisone. 2. Acute bacterial bronchitis with questionable pneumonia on computed tomography scan of the chest, treated with IV ceftriaxone and azithromycin while in the hospital. We will discharge home with 5 days course of Levaquin. Blood culture negative to date. 3. Nodular density in the lingula: May be secondary to underlying pneumonia. We need to repeat imaging within the next 2-3 months. 4. Acute on chronic hypoxic respiratory failure on home O2 5. Coronary artery disease with previous stent placement and a history of CABG 6. History of colon cancer status post partial colectomy approximately 3 years ago 7. Essential hypertension: Blood pressure well controlled Patient Condition at Discharge: Stable Plan - Discharge Summary Discharge Rx Participant: No New Discharge Prescriptions: New Cyclobenzaprine [Flexeril] 5 mg PO TID PRN #20 tab PRN Reason: Muscle Spasm Levofloxacin [Levaquin] 500 mg PO DAILY #5 tab Continue Pantoprazole Sodium [Protonix] 40 mg PO DAILY Verapamil HCl [Verapamil ER] 240 mg PO HS Sertraline [Zoloft] 100 mg PO DAILY traZODone HCL [Desyrel] 50 mg PO HS PRN PRN Reason: Insomnia Levothyroxine Sodium [Synthroid] 50 mcg PO DAILY Lovastatin [Mevacor] 40 mg PO HS Aspirin 325 mg PO HS Budesonide-Formot 160-4.5 Mcg [Symbicort 160-4.5 Mcg Inhaler] 2 puff INHALATION RT-BID Ferrous Sulfate [Iron (65 MG Elemental)] 325 mg PO DAILY Polyethylene Glycol 3350 [Miralax] 17 gm PO DAILY powd.pack Ipratropium-Albuterol Nebulize [Duoneb 0.5 mg-3 mg/3 ml Soln] 3 ml INHALATION TID #0 ALPRAZolam [Xanax] 0.25 mg PO BID Discharge Medication List Pantoprazole Sodium [Protonix] 40 mg PO DAILY 11/17/14 [History] Sertraline [Zoloft] 100 mg PO DAILY 11/17/14 [History] Verapamil HCl [Verapamil ER] 240 mg PO HS 11/17/14 [History] traZODone HCL [Desyrel] 50 mg PO HS PRN 11/17/14 [History] Levothyroxine Sodium [Synthroid] 50 mcg PO DAILY 08/12/15 [History] Lovastatin [Mevacor] 40 mg PO HS 06/30/16 [History] Aspirin 325 mg PO HS 09/03/16 [History] Budesonide-Formot 160-4.5 Mcg [Symbicort 160-4.5 Mcg Inhaler] 2 puff INHALATION RT-BID 09/03/16 [History] Ferrous Sulfate [Iron (65 MG Elemental)] 325 mg PO DAILY 09/03/16 [History] Ipratropium-Albuterol Nebulize [Duoneb 0.5 mg-3 mg/3 ml Soln] 3 ml INHALATION TID #0 09/07/16 [Rx] Polyethylene Glycol 3350 [Miralax] 17 gm PO DAILY powd.pack 09/07/16 [Rx] ALPRAZolam [Xanax] 0.25 mg PO BID 07/27/17 [History] Cyclobenzaprine [Flexeril] 5 mg PO TID PRN #20 tab 07/29/17 [Rx] Levofloxacin [Levaquin] 500 mg PO DAILY #5 tab 07/29/17 [Rx] Follow up Appointment(s)/Referral(s): Bisi Roberts MD [Primary Care Provider] - 1-2 days [facility], [NON-STAFF] - Discharge Disposition: HOME SELF-CARE
--- NOTE | 2017-07-29 16:35 | P.PN ---
Subjective Progress Note Date: 07/29/17 Principal diagnosis: Acute on chronic hypoxic respiratory failure secondary to COPD exacerbation complicated by purulent tracheobronchitis This is a very pleasant 77-year-old female patient who follows with Dr. casey as her primary care physician. She has a history of coronary artery disease with previous coronary artery bypass grafting, colon cancer with previous bowel resection, hyperlipidemia, hypertension, hypothyroidism, gastroesophageal reflux disease. 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 Ambriz in our office for the same. Her FEV1 value is 20% of predicted. She is on Symbicort and nebulized albuterol in the outpatient setting. She did smoke for approximately 20 years but quit 20 years ago. She presented here to the emergency room yesterday with complaints of right-sided back and chest discomfort. She states she had been coughing yellow sputum. She's had fevers at home up to 100.7. Increasing shortness of breath with minimal exertion. She had a recent fall but denies any injuries. An EKG revealed sinus rhythm with some ST and T-wave abnormality in the anterolateral leads. Troponin is negative. ProBNP 283. CT angiogram ruled out pulmonary embolism. He was a small amount of central hypodensity within the right lower lobe pulmonary branch. Possible old thrombus. There is evidence of advanced emphysema changes bilaterally. There is some compressive atelectasis along the major fissure of the right upper lobe. There is also a nodular density within the lingula measuring 0.9 x 0.5 cm in size. Her urinalysis also reveals positive nitrites few bacteria. Urine culture is pending. Blood culture reveals no growth after 24 hours. Currently on ceftriaxone and azithromycin. White count 12.0. Hemoglobin 9.7. On 07/29/2017 patient seen in follow-up on medical surgical floor. She is doing very well, lung sounds are still positive for some scattered wheezes, but this has improved since yesterday. She is afebrile, hemodynamically stable, remains on 3 L per nasal cannula, her pulse ox is around 96-97%. Urine and blood culture showed no growth. She is requesting discharge home today. From pulmonary standpoint she is stable for discharge home on outpatient course of Levaquin Objective - Vital Signs Vital signs: Vital Signs Temp 97.1 F L 07/29/17 07:00 Pulse 92 07/29/17 11:43 Resp 16 07/29/17 08:00 BP 139/73 07/29/17 07:00 Pulse Ox 96 07/29/17 07:00 Intake & Output 07/28/17 07/29/17 07/29/17 18:59 06:59 18:59 Intake Total 300 600 Balance 300 600 Weight 58.967 kg Intake: Oral 300 600 Other: Voiding Method Toilet Toilet Toilet # Voids 2 5 # Bowel Movements 1 - Exam GENERAL EXAM: Obese. Debilitated. Alert, fairly comfortable in no apparent distress. HEAD: Normocephalic. EYES: Normal reaction of pupils, equal size. NOSE: Clear with pink turbinates. THROAT: No erythema or exudates. NECK: No masses, no JVD. CHEST: No chest wall deformity. Some chest wall tenderness on the right posterior aspect LUNGS: Equal air entry with bilateral end expiratory wheeze, scattered rhonchi. Diminished. CVS: S1 and S2 normal with no audible murmur, regular rhythm. ABDOMEN: No hepatosplenomegaly, normal bowel sounds, no guarding or rigidity. SPINE: No scoliosis or deformity SKIN: No rashes CENTRAL NERVOUS SYSTEM: No focal deficits, tone is normal in all 4 extremities. EXTREMITIES: There is no peripheral edema. No clubbing, no cyanosis. Peripheral pulses are intact. - Labs CBC & Chem 7: 07/29/17 08:31 07/29/17 08:31 Labs: Abnormal Lab Results - Last 24 Hours (Table) 07/29/17 07/29/17 Range/Units 08:31 08:31 WBC 11.9 H (3.8-10.6) k/uL RBC 3.49 L (3.80-5.40) m/uL Hgb 9.5 L (11.4-16.0) gm/dL Hct 31.4 L (34.0-46.0) % MCHC 30.2 L (31.0-37.0) g/dL Neutrophils # 9.2 H (1.3-7.7) k/uL BUN 23 H (7-17) mg/dL Glucose 105 H (74-99) mg/dL Microbiology - Last 24 Hours (Table) 07/27/17 10:50 Blood Culture - Preliminary Blood No Growth after 48 hours 07/27/17 16:40 Urine Culture - Final Urine,Clean Catch Assessment and Plan Plan: Assessment: #1 Acute exacerbation of severe oxygen dependent chronic obstructive pulmonary disease, complicated by purulent tracheobronchitis. FEV1 value less than 20%. #2 Acute on chronic hypoxic respiratory failure secondary to above. #3 Nodular density within the lingula measuring 0.9 x 0.5 cm. This is quite small and of unclear significance. The patient's pulmonary status is too severe to recommend any further workup or intervention. #4 Hyperlipidemia. #5 Hypertension. #6 Hypothyroidism. #7 History of colon cancer status post resection and chemotherapy. #8 Coronary artery disease with previous coronary artery bypass grafting, previous stent. #9 History of anxiety/depression #10 Urinary tract infection, suspect gram-negative bacilli. #11 Poor overall functional performance based on the above-mentioned multiple comorbidities. Plan: Patient is doing well, reports improvement in her dyspnea, and right chest wall tenderness. Her vital signs are stable, she is afebrile. She is stable for discharge home today from pulmonary standpoint, on outpatient course of antibiotics and her maintenance inhalers and nebulized treatments. Follow-up with Dr. Ambriz in the office in 7-10 days. I performed a history & physical examination of the patient and discussed their management with my nurse practitioner, Payal Topete. I reviewed the nurse practitioner's note and agree with the documented findings and plan of care. Lung sounds are positive for diffuse wheezes throughout the lung de [place]ira. The findings and the impression was discussed with the patient. I attest to the documentation by the nurse practitioner. Time with Patient: Less than 30
== END 2017-07-29 13:40 | disposition home health service (06) | DRG 190 ==
LOC: EC 10:29 → 4MS4W 12:57
PROVIDERS: ADMIT Internal Medicine; ATTEND Internal Medicine
DX: J44.1 Chronic obstructive pulmonary disease with (acute) exacerbation (principal); J96.21 Acute and chronic respiratory failure with hypoxia; Z99.81 Dependence on supplemental oxygen; N39.0 Urinary tract infection, site not specified; J98.11 Atelectasis; J20.9 Acute bronchitis, unspecified; I25.10 Atherosclerotic heart disease of native coronary artery without angina pectoris; I10 Essential (primary) hypertension; E03.9 Hypothyroidism, unspecified; M81.0 Age-related osteoporosis without current pathological fracture; R79.1 Abnormal coagulation profile; M19.90 Unspecified osteoarthritis, unspecified site; F41.9 Anxiety disorder, unspecified; F32.9 Major depressive disorder, single episode, unspecified; E78.5 Hyperlipidemia, unspecified; J44.0 Chronic obstructive pulmonary disease with (acute) lower respiratory infection; B96.89 Other specified bacterial agents as the cause of diseases classified elsewhere; K21.9 Gastro-esophageal reflux disease without esophagitis; Z95.1 Presence of aortocoronary bypass graft; Z85.038 Personal history of other malignant neoplasm of large intestine; Z90.49 Acquired absence of other specified parts of digestive tract; Z79.899 Other long term (current) drug therapy; Z79.82 Long term (current) use of aspirin; Z79.51 Long term (current) use of inhaled steroids; Z80.0 Family history of malignant neoplasm of digestive organs; Z80.1 Family history of malignant neoplasm of trachea, bronchus and lung; Z80.3 Family history of malignant neoplasm of breast; Z87.891 Personal history of nicotine dependence; Z90.710 Acquired absence of both cervix and uterus; Z98.41 Cataract extraction status, right eye; Z98.42 Cataract extraction status, left eye; Z96.1 Presence of intraocular lens; I25.2 Old myocardial infarction; Z87.01 Personal history of pneumonia (recurrent); Z92.21 Personal history of antineoplastic chemotherapy; Z87.440 Personal history of urinary (tract) infections; Z90.89 Acquired absence of other organs
CPT/HCPCS: 36415; 71046; 71275; 80048; 80053; 81001; 82550; 82553; 83735; 83880; 84484; 85025; 85610; 85730; 87040; 87086; 93005; 94640; 94760; 96365; 96375; 99285